=== PATIENT | male | born 1955 | race African-American/Black ===

== ENCOUNTER 2021-07-25 08:20 | Emergency (ER) | payer MEDICARE ==
[2021-07-25 08:26] VITALS: RESP 18; TEMP 98.5
[2021-07-25] MEDS ORDERED: hydrALAZINE HCL 20 MG/ML 1 ML VIAL IVP STA (08:57)
[2021-07-25 09:32] LABS: Basophils % (A) 1 %; Eosinophils # (A) 0.3 k/uL (0-0.7); Eosinophils % (A) 4 %; HCT 49.9 % (39.0-53.0); HGB 16.5 gm/dL (13.0-17.5); Lymphocytes # (A) 2.2 k/uL (1.0-4.8); Lymphocytes % (A) 31 %; MCH 30.6 pg (25.0-35.0); MCHC 33.1 g/dL (31.0-37.0); MCV 92.3 fL (80.0-100.0); Mean Platelet Volume 6.7; Monocytes # (A) 0.4 k/uL (0-1.0); Monocytes % (A) 6 %; Neutrophils # (A) 4.1 k/uL (1.3-7.7); Neutrophils % (A) 57 %; Platelet Count 282 k/uL (150-450); RBC 5.41 m/uL (4.30-5.90); RDW 14.7 % (11.5-15.5); WBC 7.3 k/uL (3.8-10.6)
[2021-07-25] MEDS ORDERED: hydrALAZINE HCL 50 MG TAB PO STA (09:32)
[2021-07-25 09:59] LABS: Potassium 4.8 mmol/L (3.5-5.1)
--- NOTE | 2021-07-25 10:40 | CT ---
EXAMINATION TYPE: CT brain wo con DATE OF EXAM: 07/25/2021 COMPARISON: None HISTORY: 66-year-old male KILLIAN, hypertension TECHNIQUE: Examination was done in axial plane without intravenous contrast. Coronal and sagittal r econstructions performed. CT DLP: 1079 mGycm Automated exposure control for dose reduction was used. FINDINGS: There is no evidence of acute intracranial hemorrhage, acute ischemic changes, mass, mass-effect, or extra-axial fluid collection. There is no effacement of cerebral sulci or basal subarachnoid cister ns. There is no hydrocephalus. There is no midline shift. Rutherford-white matter distinction is preserv ed. Moderate mucosal thickening anterior ethmoid air cells. Some lobulated mucosal thickening lateral asp ect of the right sphenoid sinus. Mastoid air cells well pneumatized. Orbits and globes are intact. IMPRESSION: No acute intracranial abnormality seen. Moderate chronic ethmoid sinus disease.
--- NOTE | 2021-07-25 10:44 | CT ---
EXAMINATION TYPE: CT angio head neck DATE OF EXAM: 07/25/2021 COMPARISON: CT head same day HISTORY: 66-year-old male KILLIAN, hypertension TECHNIQUE: Contiguous axial scanning of the head and neck performed with IV Contrast, patient injecte d with 65 mL of Isovue 370. Coronal/sagittal MIP reconstructions performed. 3-D reconstructions gener ated on a dedicated workstation. CT DLP: 539.2 mGycm Automated exposure control for dose reduction was used. FINDINGS: NECK: Emphysematous change in the visualized upper lungs. There is very direct takeoff of the left vertebral artery directly from the aortic arch. Both vertebr al arteries are patent throughout the course. The right common and right internal carotid arteries are widely patent by NASCET criteria. The left common and left internal carotid arteries are widely patent by NASCET criteria. Mild to moderate hypertrophy of the bilateral palatine tonsils and lingual tonsils. HEAD: The vertebral and basilar arteries as well as the remainder of the posterior circulation is patent. The internal carotid arteries show mild atherosclerotic calcifications in the siphons but no signific ant narrowing. The remainder of the anterior circulation is patent. No aneurysmal change. Dural venous sinuses are patent. IMPRESSION: 1. 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 OTHERWIS E, WIDELY PATENT VERTEBRAL AND CAROTID ARTERIES OF THE NECK. 2. HEAD: NORMAL HYDABURG OF LOVE.
--- NOTE | 2021-07-25 12:16 | ED ---
General Adult HPI - General Chief complaint: Headache Stated complaint: Headache/sinus issues Time Seen by Provider: 07/25/21 08:33 Source: patient, RN notes reviewed, old records reviewed Mode of arrival: ambulatory Limitations: no limitations - History of Present Illness Initial comments: Patient is a 66 year old male who presents emergency Department complaining of uncontrolled hypertension as well as a headache and sinus congestion. She states as been ongoing for one or 2 days. States it is worse today, and wanted to be evaluated. He is out of his blood pressure medication. Is uncertain the name of it. Describes his headache as a frontal headache that is one of the worst headaches he has had. Denies any chest pain, shortness breath, abdominal pain, nausea, vomiting. Denies any weakness, numbness. Denies any visual changes. Presents over concern for his high blood pressure. Was found to be over 200 systolic in triage.Denies any history of aneurysms in himself or family members. Denies any trauma.Endorses nasal congestion. Denies cough. - Related Data Home Medications Medication Instructions Recorded Confirmed hydrALAZINE HCL [Apresoline] 50 mg PO BID 07/25/21 07/25/21 Previous Rx's Medication Instructions Recorded hydrALAZINE HCL 50 mg PO BID 30 Days #60 tablet 07/25/21 Allergies Allergy/AdvReac Type Severity Reaction Status Date / Time amlodipine Allergy Rash/Hives Verified 07/25/21 09:13 lisinopril Allergy "put Verified 07/25/21 09:04 patient in coma" Review of Systems ROS Statement: Those systems with pertinent positive or pertinent negative responses have been documented in the HPI. Review of Systems: CONST: Denies fever EYES: Denies blurry vision ENT: Endorses nasal congestion C/V: Denies Chest pain RESP: Denies shortness of breath GI: Denies abdominal pain : Denies dysuria SKIN: Denies rash. MSK: Denies joint pain. NEURO: Endorses headache ROS Other: All systems not noted in ROS Statement are negative. Past Medical History Past Medical History: Hypertension History of Any Multi-Drug Resistant Organisms: None Reported Past Surgical History: No Surgical Hx Reported Past Psychological History: No Psychological Hx Reported Smoking Status: Never smoker Past Alcohol Use History: None Reported Past Drug Use History: None Reported General Exam - General Exam Comments Initial Comments: General: Appears in no acute distress. HEAD: Normal with no signs of head trauma. EYES: PERRLA, EOMI, conjunctiva normal, no discharge. Pupils 3 mm and equal bilaterally. ENT: Hearing grossly intact, normal oropharynx. Frontal sinus tenderness to palpation. RESPIRATORY: Clear breath sounds bilaterally. No wheezes, rales, or rhonchi. C/V: Regular rate and rhythm. S1 and S2 auscultated, no edema, peripheral pulses 2+ and intact throughout ABD: Abd is soft, nontender, nondistended EXT: Normal range of motion, no obvious deformity SKIN: No rashes or lesions observed on exposed skin. NEURO: Alert and oriented x 4. Cranial nerves II-XII intact. No focal sensory or strength deficits. NIH of 0. GCS 15. Able to ambulate without difficulty. Limitations: no limitations Course Vital Signs 07/25/21 07/25/21 07/25/21 08:23 09:14 09:39 Temperature 98.5 F Pulse Rate 98 67 69 Respiratory 18 18 18 Rate Blood Pressure 222/130 213/132 171/97 O2 Sat by Pulse 97 96 97 Oximetry 07/25/21 07/25/21 10:33 12:46 Temperature Pulse Rate 84 80 Respiratory 18 18 Rate Blood Pressure 165/87 182/88 O2 Sat by Pulse 98 98 Oximetry Medical Decision Making - Medical Decision Making Based on the patient's presentation and physical exam, does appear that he is experiencing uncontrolled hypertension. Remainder of his symptoms may be related to this, however patient is describing 1 the worst headaches of his life. Cannot rule out intracranial bleeding at this time secondary to possible aneurysm. Therefore we will obtain CT imaging with CT angiogram. He was in agreement this plan. Basic labs also be obtained. Screening EKG will be obtained. We'll attempt to figure out what his home blood pressure medications. He'll be given 10 mg IV hydralazine the meantime. EKG showed no signs of acute ischemia. Brain CT revealed sinus disease, however no acute intracranial abnormality. CT angiography revealed no aneurysms, no stenosis. Laboratory studies are relatively unremarkable. I did update the patient's lab results of his laboratory studies and imaging. He is requesting COVID-19 swab this time, therefore this will be obtained. We did find that the patient takes hydralazine 50 g twice a day he was admitted to the pelvis. Repeat blood pressure is significantly improved with systolics in the 160s and 170s. Patient's headache is resolved. He still having sinus drainage. We discussed the likely has a viral sinusitis. Excess understanding. Patient's viral swabs were negative for flu, RSV, Covid. After the patient's on results. I believe it is safer to be discharged home. Blood pressure remained stable. He is asymptomatic at this time. We'll provide him with a prescription for his home hydralazine. Patient was in agreement this plan. I will provide the patient with a prescription for hydralazine 50 mg twice a day. I instructed the patient to follow up with their PCP in the next 3 days. I explained that the patient should return to the emergency department if they experience any worsening symptoms. Strict return precautions were discussed with the patient. The patient expressed understanding of these instructions. I answered all questions that the patient had. The patient was discharged home in good condition with their prescriptions and follow up information. - Lab Data Result diagrams: 07/25/21 09:14 07/25/21 09:14 Lab Results 07/25/21 07/25/21 07/25/21 Range/Units 09:14 09:14 10:38 WBC 7.3 (3.8-10.6) k/uL RBC 5.41 (4.30-5.90) m/uL Hgb 16.5 (13.0-17.5) gm/dL Hct 49.9 (39.0-53.0) % MCV 92.3 (80.0-100.0) fL MCH 30.6 (25.0-35.0) pg MCHC 33.1 (31.0-37.0) g/dL RDW 14.7 (11.5-15.5) % Plt Count 282 (150-450) k/uL MPV 6.7 Neutrophils % 57 % Lymphocytes % 31 % Monocytes % 6 % Eosinophils % 4 % Basophils % 1 % Neutrophils # 4.1 (1.3-7.7) k/uL Lymphocytes # 2.2 (1.0-4.8) k/uL Monocytes # 0.4 (0-1.0) k/uL Eosinophils # 0.3 (0-0.7) k/uL Basophils # 0.0 (0-0.2) k/uL Sodium 137 (137-145) mmol/L Potassium 4.8 (3.5-5.1) mmol/L Chloride 104 (98-107) mmol/L Carbon Dioxide 19 L (22-30) mmol/L Anion Gap 14 mmol/L BUN 13 (9-20) mg/dL Creatinine 1.16 (0.66-1.25) mg/dL Est GFR (CKD-EPI)AfAm 76 (>60 ml/min/1.73 sqM) Est GFR (CKD-EPI)NonAf 66 (>60 ml/min/1.73 sqM) Glucose 149 H (74-99) mg/dL Calcium 9.0 (8.4-10.2) mg/dL Influenza Type A (PCR) Not Detected (Not Detectd) Influenza Type B (PCR) Not Detected (Not Detectd) RSV (PCR) Not Detected (Not Detectd) SARS-CoV-2 (PCR) Not Detected (Not Detectd) - EKG Data -: EKG Interpreted by Me EKG Comments: 12-lead Electrocardiogram Interpretation Note EKG was reviewed and interpreted by myself. 12-lead ECG performed at 0924 is int erpreted by me as revealing normal sinus rhythm at a rate of 80 beats per minute. Trimble is normal. AR interval is 152 ms, QRS duration is 93 ms, QTc is 408 ms.. There were no ST or T wave abnormalities to suggest myocardial ischemia or injury. R wave progression across the precordium was satisfactory. By my interpretation this EKG is non-diagnostic for acute ischemia. No prior EKG for comparison. There is J-point elevation in lead V2 only. Disposition Clinical Impression: Sinusitis, Hypertension, Headache Disposition: HOME SELF-CARE Condition: Good Instructions (If sedation given, give patient instructions): Sinusitis (ED), Hypertension (ED) Prescriptions: hydrALAZINE HCL 50 mg PO BID 30 Days #60 tablet Is patient prescribed a controlled substance at d/c from ED?: No Referrals: Blaire Ellington MD [Primary Care Provider] - 1-2 days
[2021-07-25 12:47] VITALS: BP 182/88; PULSE 80
== END 2021-07-25 12:47 | disposition home or self-care (01) ==
LOC: EC 08:20
DX: J01.10 Acute frontal sinusitis, unspecified (principal); I10 Essential (primary) hypertension; Z20.822 Contact with and (suspected) exposure to COVID-19
CPT/HCPCS: 36415; 70450; 70496; 70498; 80048; 85025; 87636; 93005; 96374; 99284

== ENCOUNTER 2021-09-25 11:41 | Emergency (ER) | payer MEDICARE ==
[2021-09-25 11:44] VITALS: TEMP 98.3
--- NOTE | 2021-09-25 13:00 | XR ---
EXAMINATION TYPE: XR foot complete LT DATE OF EXAM: 09/25/2021 CLINICAL HISTORY: pain TECHNIQUE: AP and lateral images of the left tibia and fibula are obtained. COMPARISON: None. FINDINGS: There is no acute fracture/dislocation evident. There is moderate degenerative joint space narrowing involving the first metatarsal phalangeal joint with erosive arthropathy noted particularl y involving the first metatarsal head. There is associated soft tissue swelling. Remaining joint spac es appear to be well maintained. IMPRESSION: Correlate for erosive arthropathy.
[2021-09-25 13:03] LABS: Albumin 4.5 g/dL (3.5-5.0); Calcium 9.4 mg/dL (8.4-10.2); Potassium 4.3 mmol/L (3.5-5.1); Total Bilirubin 1.1 mg/dL (0.2-1.3); Total Protein 8.4 g/dL (6.3-8.2)
[2021-09-25] MEDS ORDERED: MORPHINE SULFATE 4 MG/ML SYRINGE IVP PRN (13:03)
[2021-09-25 13:25] LABS: Basophils # (A) 0.1 k/uL (0-0.2); Basophils % (A) 0 %; Eosinophils # (A) 0.1 k/uL (0-0.7); Eosinophils % (A) 1 %; HCT 44.7 % (39.0-53.0); HGB 14.8 gm/dL (13.0-17.5); Lymphocytes # (A) 2.1 k/uL (1.0-4.8); Lymphocytes % (A) 18 %; Mean Platelet Volume 7.1; Monocytes # (A) 0.7 k/uL (0-1.0); Monocytes % (A) 6 %; Neutrophils # (A) 8.6 k/uL (1.3-7.7); Neutrophils % (A) 74 %; Platelet Count 423 k/uL (150-450); RBC 4.91 m/uL (4.30-5.90); RDW 14.7 % (11.5-15.5); WBC 11.6 k/uL (3.8-10.6)
--- NOTE | 2021-09-25 13:46 | ED ---
Extremity Problem HPI - General Chief complaint: Extremity Problem,Nontraumatic Stated complaint: gout Time Seen by Provider: 09/25/21 11:53 Source: patient Mode of arrival: ambulatory Limitations: no limitations - History of Present Illness Initial comments: Patient is a 66-year-old -[place] male who presents to the emergency room with complaints of severe left foot pain. He reports that he has had gouty flares of his left foot in the past. He states that the pain began approximately 1 week ago and has gotten more severe to the point where he is unable to tolerate it at home. He reports that approximately 3 weeks ago he had swelling and pain in his foot and with rest the pain improved. He states that just prior to the swelling and pain in his foot he does have a large dietary intake of seafood. He has a past medical history significant for hypertension and gout. He denies any renal failure or diabetic history. He denies any other complaints or concerns at this time. - Related Data Home Medications Medication Instructions Recorded Confirmed hydrALAZINE HCL [Apresoline] 50 mg PO BID 07/25/21 07/25/21 Previous Rx's Medication Instructions Recorded hydrALAZINE HCL 50 mg PO BID 30 Days #60 tablet 07/25/21 Allergies Allergy/AdvReac Type Severity Reaction Status Date / Time amlodipine Allergy Rash/Hives Verified 09/25/21 11:44 lisinopril Allergy "put Verified 09/25/21 11:44 patient in coma" Review of Systems ROS Statement: Those systems with pertinent positive or pertinent negative responses have been documented in the HPI. ROS Other: All systems not noted in ROS Statement are negative. Past Medical History Past Medical History: Hypertension History of Any Multi-Drug Resistant Organisms: None Reported Past Surgical History: No Surgical Hx Reported Past Psychological History: No Psychological Hx Reported Smoking Status: Never smoker Past Alcohol Use History: None Reported Past Drug Use History: None Reported General Exam Limitations: no limitations General appearance: alert, in no apparent distress Head exam: Present: atraumatic, normocephalic, normal inspection Eye exam: Present: normal appearance, PERRL, EOMI. Absent: scleral icterus, conjunctival injection, periorbital swelling ENT exam: Present: normal exam, mucous membranes moist Left Ankle exam: Present: tenderness, swelling, erythema. Absent: full ROM (limited due to pain) Foot/Toe exam: Present: tenderness, swelling, erythema. Absent: full ROM (limited due to pain) Neurovascular tendon exam: Present: no vascular compromise Gait: observed and limited by pain Neurological exam: Present: alert, oriented X3, CN II-XII intact Psychiatric exam: Present: normal affect, normal mood Skin exam: Present: warm, dry, intact. Absent: rash Course Vital Signs 09/25/21 11:41 Temperature 98.3 F Pulse Rate 122 H Respiratory 20 Rate Blood Pressure 164/93 O2 Sat by Pulse 99 Oximetry Medical Decision Making - Medical Decision Making Due to diffuse left foot swelling and recent gouty event labs along with x-ray of left foot completed. X-ray showed no acute fracture or dislocation. There is moderate degenerative joint space narrowing involving the first metatarsophalangeal joint with erosive arthropathy noted particularly involving the first metatarsal head there is associated soft tissue swelling. The remaining joint spaces appear to be well-maintained. Renal function is stable. Uric acid is normal. Mild leukocytosis noted. Case discussed with Dr. Fulton orthopedics who recommends treating for gouty arthritis with follow-up in his office in 2 days. Patient agreeable. Pain improved with IM morphine. - Lab Data Result diagrams: 09/25/21 13:06 09/25/21 12:11 Lab Results 09/25/21 09/25/21 Range/Units 12:11 13:06 WBC 11.6 H (3.8-10.6) k/uL RBC 4.91 (4.30-5.90) m/uL Hgb 14.8 (13.0-17.5) gm/dL Hct 44.7 (39.0-53.0) % MCV 91.0 (80.0-100.0) fL MCH 30.0 (25.0-35.0) pg MCHC 33.0 (31.0-37.0) g/dL RDW 14.7 (11.5-15.5) % Plt Count 423 (150-450) k/uL MPV 7.1 Neutrophils % 74 % Lymphocytes % 18 % Monocytes % 6 % Eosinophils % 1 % Basophils % 0 % Neutrophils # 8.6 H (1.3-7.7) k/uL Lymphocytes # 2.1 (1.0-4.8) k/uL Monocytes # 0.7 (0-1.0) k/uL Eosinophils # 0.1 (0-0.7) k/uL Basophils # 0.1 (0-0.2) k/uL Sodium 139 (137-145) mmol/L Potassium 4.3 (3.5-5.1) mmol/L Chloride 100 (98-107) mmol/L Carbon Dioxide 28 (22-30) mmol/L Anion Gap 11 mmol/L BUN 12 (9-20) mg/dL Creatinine 1.28 H (0.66-1.25) mg/dL Est GFR (CKD-EPI)AfAm 67 (>60 ml/min/1.73 sqM) Est GFR (CKD-EPI)NonAf 58 (>60 ml/min/1.73 sqM) Glucose 141 H (74-99) mg/dL Uric Acid 8.0 (3.5-8.5) mg/dL Calcium 9.4 (8.4-10.2) mg/dL Total Bilirubin 1.1 (0.2-1.3) mg/dL AST 24 (17-59) U/L ALT 22 (4-49) U/L Alkaline Phosphatase 68 (38-126) U/L Total Protein 8.4 H (6.3-8.2) g/dL Albumin 4.5 (3.5-5.0) g/dL - Radiology Data Radiology results: report reviewed, image reviewed Disposition Clinical Impression: Gout Disposition: HOME SELF-CARE Condition: Good Instructions (If sedation given, give patient instructions): Gout (ED) Additional Instructions: Call crests prescription started with 1.2 mg given in the emergency room and 0.6 mg given to patient to take an 1 hour to complete acute dosing. Tylenol 3 starter packet given to patient for pain. Low purine diet discussed. Please return to the Emergency Department if symptoms worsen or any other concerns. Is patient prescribed a controlled substance at d/c from ED?: No Referrals: Reese Fulton DO [Doctor of Osteopathic Medicine] - 1-2 days Blaire Ellington MD [Primary Care Provider] - 1-2 days Time of Disposition: 16:32
[2021-09-25] MEDS ORDERED: ACET/COD 300 MG/30 MG STARTER PACK 6 TAB BTL PO STA (13:53)
[2021-09-25] MEDS ORDERED: COLCHICINE 0.6 MG EACH PO SCH ×2 (16:30→18:00)
[2021-09-25 16:41] VITALS: BP 149/101; PULSE 101; RESP 14
[2021-09-25] MEDS ORDERED: COLCHICINE 0.6 MG EACH PO ONE (16:45)
[2021-09-26] MEDS ORDERED: COLCHICINE 0.6 MG EACH PO SCH (09:00)
== END 2021-09-25 17:11 | disposition home or self-care (01) ==
LOC: EC 11:41
DX: M10.9 Gout, unspecified (principal); I10 Essential (primary) hypertension; Z79.899 Other long term (current) drug therapy
CPT/HCPCS: 36415; 80053; 84550; 85025; 96374; 99283

== ENCOUNTER 2022-10-22 09:04 | Emergency (ER) | payer MEDICARE, OTHER ==
[2022-10-22 09:31] VITALS: RESP 18
--- NOTE | 2022-10-22 10:27 | XR ---
EXAMINATION TYPE: XR chest 2V DATE OF EXAM: 10/22/2022 COMPARISON: NONE HISTORY: Shortness of breath TECHNIQUE: Frontal and lateral views of the chest are obtained. FINDINGS: Scattered senescent parenchymal changes noted. Hyperinflation compatible with COPD. Perihilar and basilar increased interstitial prominence may be chronic in nature although acute under lying interstitial pneumonitis is difficult to exclude. Correlate clinically and progress studies may be of value. No evidence for atelectasis. Heart size is stable. Mediastinal structures are stable and grossly unremarkable. No evidence for hilar prominence. Degenerative changes dorsal spine. IMPRESSION: 1. Perihilar and basilar increased interstitial prominence may be chronic in nature although acute un derlying interstitial pneumonitis is difficult to exclude. Correlate clinically and progress studies may be of value.
--- NOTE | 2022-10-22 10:31 | ED ---
URI HPI - General Chief Complaint: Upper Respiratory Infection Stated Complaint: cough Time Seen by Provider: 10/22/22 09:18 Source: patient, RN notes reviewed Mode of arrival: ambulatory Limitations: no limitations - History of Present Illness Initial Comments: 67-year-old male presents emergency Department chief complaint of cough congestion. Patient states that he has been sick for last 4 days he states she's been hearing some wheezing, rattling in his chest. He has productive cough, mild sinus congestion.. Patient denies any history of asthma, COPD. Patient denies any fevers or chills no sick contacts. Denies any GI symptoms. - Related Data Home Medications Medication Instructions Recorded Confirmed hydrALAZINE HCL [Apresoline] 50 mg PO BID 07/25/21 07/25/21 Previous Rx's Medication Instructions Recorded hydrALAZINE HCL 50 mg PO BID 30 Days #60 tablet 07/25/21 Azithromycin [Zithromax Z Pack] 0 tab PO DIRECTED #6 tab 10/22/22 predniSONE 50 mg PO DAILY #5 tab 10/22/22 Allergies Allergy/AdvReac Type Severity Reaction Status Date / Time amlodipine Allergy Rash/Hives Verified 10/22/22 09:12 lisinopril Allergy "put Verified 10/22/22 09:12 patient in coma" Review of Systems ROS Statement: Those systems with pertinent positive or pertinent negative responses have been documented in the HPI. ROS Other: All systems not noted in ROS Statement are negative. Past Medical History Past Medical History: Hypertension History of Any Multi-Drug Resistant Organisms: None Reported Past Surgical History: No Surgical Hx Reported Past Psychological History: No Psychological Hx Reported Smoking Status: Never smoker Past Alcohol Use History: None Reported Past Drug Use History: None Reported General Exam Limitations: no limitations General appearance: alert, in no apparent distress Head exam: Present: atraumatic, normocephalic, normal inspection Eye exam: Present: normal appearance, PERRL, EOMI. Absent: scleral icterus, conjunctival injection, periorbital swelling ENT exam: Present: normal exam, normal oropharynx, mucous membranes moist Neck exam: Present: normal inspection, full ROM. Absent: tenderness, meningismus, lymphadenopathy Respiratory exam: Present: normal lung sounds bilaterally. Absent: respiratory distress, wheezes, rales, rhonchi, stridor Cardiovascular Exam: Present: regular rate, normal rhythm, normal heart sounds. Absent: systolic murmur, diastolic murmur, rubs, gallop, clicks GI/Abdominal exam: Present: soft, normal bowel sounds. Absent: distended, tenderness, guarding, rebound, rigid Neurological exam: Present: alert Skin exam: Present: warm, dry, intact, normal color. Absent: rash Course Vital Signs 10/22/22 10/22/22 09:13 09:27 Temperature 98.8 F Pulse Rate 78 Respiratory 16 18 Rate Blood Pressure 198/97 O2 Sat by Pulse 94 L Oximetry Medical Decision Making - Medical Decision Making Was pt. sent in by a medical professional or institution (, [facility], STAFF PSYCHIATRIST, urgent care, hospital, or detention...) When possible be specific @ -No Did you speak to anyone other than the patient for history (EMS, parent, family, police, friend...)? What history was obtained from this source @ -No Did you review nursing and triage notes (agree or disagree)? Why? @ -I reviewed and agree with nursing and triage notes Were old charts reviewed (outside hosp., previous admission, EMS record, old EKG, old radiological studies, urgent care reports/EKG's, detention records)? Report findings @ -No old charts were reviewed Differential Diagnosis (chest pain, altered mental status, abdominal pain women, abdominal pain men, vaginal bleeding, weakness, fever, dyspnea, syncope, headache, dizziness, GI bleed, back pain, seizure, CVA, palpatations, mental health, musculoskeletal)? @ -Pneumonia, acute bronchitis, URI EKG interpreted by me (3pts min.). @ -None X-rays interpreted by me (1pt min.). @ -Chest x-ray shows perihilar infiltrate CT interpreted by me (1pt min.). @ -None done U/S interpreted by me (1pt. min.). @ -None done What testing was considered but not performed or refused? (CT, X-rays, U/S, labs)? Why? @ -None What meds were considered but not given or refused? Why? @ -None Did you discuss the management of the patient with other professionals (professionals i.e. BRODY Jc, STAFF PSYCHIATRIST, lab, RT, psych nurse, social media community manager, peoplesoft hrms developer, teacher, service officer, case management coordinator)? Give summary @ -No Was smoking cessation discussed for >3mins.? @ -No Was critical care preformed (if so, how long)? @ -No Were there social determinants of health that impacted care today? How? (Homelessness, low income, unemployed, alcoholism, drug addiction, transportation, low edu. Level, literacy, decrease access to med. care, longterm, rehab)? @ -No Was there de-escalation of care discussed even if they declined (Discuss DNR or withdrawal of care, Hospice)? DNR status @ -No What co-morbidities impacted this encounter? (DM, HTN, Smoking, COPD, CAD, Cancer, CVA, ARF, Chemo, Hep., AIDS, mental health diagnosis, sleep apnea, morbid obesity)? @ -None Was patient admitted / discharged? Hospital course, mention meds given and route, prescriptions, significant lab abnormalities, going to OR and other pertinent info. @ -Discharge patient has early signs of pneumonia. Patient will be discharged on oral antibiotics return parameters were discussed. Undiagnosed new problem with uncertain prognosis? @ -No] Drug Therapy requiring intensive monitoring for toxicity (Heparin, Nitro, Insulin, Cardizem)? @ -[No] Were any procedures done? @ -[No] Diagnosis/symptom? @ -[Pneumonia] Acute, or Chronic, or Acute on Chronic? @ -[Acute] Uncomplicated (without systemic symptoms) or Complicated (systemic symptoms)? @ -[Uncomplicated] Side effects of treatment? @ -[No] Exacerbation, Progression, or Severe Exacerbation? @ -[No] Poses a threat to life or bodily function? How? (Chest pain, [place], [place], pneumonia, PE, COPD, DKA, ARF, appy, cholecystitis, CVA, Diverticulitis, Homicidal, Suicidal, threat to staff... and all critical care pts) @ -[No] Disposition Clinical Impression: Pneumonia Disposition: HOME SELF-CARE Condition: Stable Instructions (If sedation given, give patient instructions): Pneumonia (ED) Additional Instructions: Please return to the Emergency Department if symptoms worsen or any other concerns. Prescriptions: predniSONE 50 mg PO DAILY #5 tab Azithromycin [Zithromax Z Pack] 0 tab PO DIRECTED #6 tab Is patient prescribed a controlled substance at d/c from ED?: No Referrals: Blaire Ellington MD [Primary Care Provider] - 1-2 days Time of Disposition: 10:44
[2022-10-22 11:00] VITALS: BP 185/106; PULSE 80; TEMP 98.1
== END 2022-10-22 11:16 | disposition home or self-care (01) ==
LOC: EC 09:04
DX: J18.9 Pneumonia, unspecified organism (principal); I10 Essential (primary) hypertension; Z79.899 Other long term (current) drug therapy; Z88.6 Allergy status to analgesic agent; Z88.8 Allergy status to other drugs, medicaments and biological substances
CPT/HCPCS: 71046; 99283

== ENCOUNTER 2023-03-03 07:17 | Emergency (ER) | payer MEDICARE, OTHER ==
[2023-03-03 07:35] VITALS: BP 178/90; PULSE 68; RESP 22; TEMP 98.7
--- NOTE | 2023-03-03 07:44 | ED ---
General Adult HPI - General Chief complaint: Upper Respiratory Infection Stated complaint: congestion Time Seen by Provider: 03/03/23 07:22 Source: patient, RN notes reviewed, old records reviewed Mode of arrival: ambulatory Limitations: no limitations - History of Present Illness Initial comments: 67-year-old male presenting for evaluation of cough, congestion. Patient states his symptoms 7 present for the past 2 days. He reports nasal congestion, sore throat, and productive cough. No fever. No chest pain. No dyspnea. No vomiting. Patient denies tobacco use, denies history of asthma. States he has history of hypertension. - Related Data Home Medications Medication Instructions Recorded Confirmed hydrALAZINE HCL [Apresoline] 50 mg PO BID 07/25/21 07/25/21 Previous Rx's Medication Instructions Recorded hydrALAZINE HCL 50 mg PO BID 30 Days #60 tablet 07/25/21 Azithromycin [Zithromax Z Pack] 0 tab PO DIRECTED #6 tab 10/22/22 predniSONE 50 mg PO DAILY #5 tab 10/22/22 Albuterol Inhaler [Ventolin Hfa 1 - 2 puff INHALATION Q4HR PRN #1 03/03/23 Inhaler] each Azithromycin [Zithromax Z Pack] 1 tab PO DIRECTED #6 tab 03/03/23 predniSONE 50 mg PO DAILY #5 tab 03/03/23 Allergies Allergy/AdvReac Type Severity Reaction Status Date / Time amlodipine Allergy Rash/Hives Verified 03/03/23 07:25 lisinopril Allergy "put Verified 03/03/23 07:25 patient in coma" Review of Systems ROS Statement: Those systems with pertinent positive or pertinent negative responses have been documented in the HPI. ROS Other: All systems not noted in ROS Statement are negative. Past Medical History Past Medical History: Hypertension History of Any Multi-Drug Resistant Organisms: None Reported Past Surgical History: No Surgical Hx Reported Past Psychological History: No Psychological Hx Reported Smoking Status: Never smoker Past Alcohol Use History: None Reported Past Drug Use History: Marijuana General Exam Limitations: no limitations General appearance: alert, in no apparent distress Head exam: Present: atraumatic, normocephalic Eye exam: Present: normal appearance, PERRL ENT exam: Present: other (Nasal congestion) Respiratory exam: Present: wheezes, rhonchi. Absent: respiratory distress Cardiovascular Exam: Present: regular rate, normal rhythm GI/Abdominal exam: Present: soft. Absent: distended, tenderness, guarding Extremities exam: Present: normal inspection Neurological exam: Present: alert, oriented X3 Psychiatric exam: Present: normal affect, normal mood Skin exam: Present: warm, dry, intact. Absent: cyanosis, diaphoretic Course Vital Signs 03/03/23 07:23 Temperature 98.7 F Pulse Rate 68 Respiratory 22 Rate Blood Pressure 178/90 O2 Sat by Pulse 98 Oximetry Medical Decision Making - Medical Decision Making Was pt. sent in by a medical professional or institution (, BR[facility], CULTURED MARBLE PRODUCTS MAKER, urgent care, hospital, or correction...) When possible be specific @ -No Did you speak to anyone other than the patient for history (EMS, parent, family, police, friend...)? What history was obtained from this source @ -No Did you review nursing and triage notes (agree or disagree)? Why? @ -I reviewed and agree with nursing and triage notes Were old charts reviewed (outside hosp., previous admission, EMS record, old EKG, old radiological studies, urgent care reports/EKG's, correction records)? Report findings @ -No old charts were reviewed Differential Diagnosis (chest pain, altered mental status, abdominal pain women, abdominal pain men, vaginal bleeding, weakness, fever, dyspnea, syncope, headache, dizziness, GI bleed, back pain, seizure, CVA, palpatations, mental health, musculoskeletal)? @ Bronchitis, pneumonia, reactive airway disease, upper respiratory infection EKG interpreted by me (3pts min.). @ -As above X-rays interpreted by me (1pt min.). @ Chest x-ray showing interstitial prominence, possible fibrosis, similar comp ared to several months prior. CT interpreted by me (1pt min.). @ -None done U/S interpreted by me (1pt. min.). @ -None done What testing was considered but not performed or refused? (CT, X-rays, U/S, labs)? Why? @ -None What meds were considered but not given or refused? Why? @ -None Did you discuss the management of the patient with other professionals (professionals i.e. BRODY Jc, CULTURED [employer]BLE PRODU[employer] MAKER, lab, RT, psych nurse, social services assistant, fire inspector, teacher, weapons electrical engineering officer, medical case worker)? Give summary @ -No Was smoking cessation discussed for >3mins.? @ -No Was critical care preformed (if so, how long)? @ -No Were there social determinants of health that impacted care today? How? (Homelessness, low income, unemployed, alcoholism, drug addiction, transportation, low edu. Level, literacy, decrease access to med. care, fdc, rehab)? @ -No Was there de-escalation of care discussed even if they declined (Discuss DNR or withdrawal of care, Hospice)? DNR status @ -No What co-morbidities impacted this encounter? (DM, HTN, Smoking, COPD, CAD, Cancer, CVA, ARF, Chemo, Hep., AIDS, mental health diagnosis, sleep apnea, morbid obesity)? @ -[Hypertension. Was patient admitted / discharged? Hospital course, mention meds given and route, prescriptions, significant lab abnormalities, going to OR and other pertinent info. @ -[Patient's viral panel is negative. Chest x-ray similar to prior showing either fibrosis or interstitial prominence. Patient will be covered for pneumonia with likely fibrosis and COPD patient should follow closely with his primary care provider and may require pulmonology consult. Undiagnosed new problem with uncertain prognosis? @ -No Drug Therapy requiring intensive monitoring for toxicity (Heparin, Nitro, Insulin, Cardizem)? @ -No Were any procedures done? @ -No Diagnosis/symptom? @ Reactive airway disease, pneumonia Acute, or Chronic, or Acute on Chronic? @ -[Acute Uncomplicated (without systemic symptoms) or Complicated (systemic symptoms)? @ -default Side effects of treatment? @ -No Exacerbation, Progression, or Severe Exacerbation? @ -No Poses a threat to life or bodily function? How? (Chest pain, [place], [place], pneumonia, PE, COPD, DKA, ARF, appy, cholecystitis, CVA, Diverticulitis, Homicidal, Suicidal, threat to staff... and all critical care pts) @ -[Low risk Disposition Clinical Impression: Pneumonia, Bronchitis Disposition: HOME SELF-CARE Condition: Good Instructions (If sedation given, give patient instructions): Pneumonia (ED) Prescriptions: predniSONE 50 mg PO DAILY #5 tab Albuterol Inhaler [Ventolin Hfa Inhaler] 1 - 2 puff INHALATION Q4HR PRN #1 each PRN Reason: Shortness Of Breath Azithromycin [Zithromax Z Pack] 1 tab PO DIRECTED #6 tab Is patient prescribed a controlled substance at d/c from ED?: No Referrals: Vargas Cohen MD [Primary Care Provider] - 1-2 days Time of Disposition: 08:28
--- NOTE | 2023-03-03 08:21 | XR ---
EXAMINATION TYPE: XR chest 2V DATE OF EXAM: 03/03/2023 8:00 AM COMPARISON: Chest radiographs from 10/22/2022 TECHNIQUE: XR chest 2V Frontal and lateral views of the chest. CLINICAL INDICATION:Male, 67 years old with history of cough; FINDINGS: Lungs/Pleura: There is no evidence of pleural effusion, focal consolidation, or pneumothorax. Chronic perihilar and bibasilar interstitial prominence. Hyperinflation. Pulmonary vascularity: Unremarkable. Heart/mediastinum: Cardiomediastinal silhouette is unremarkable. Musculoskeletal: No acute osseous pathology. IMPRESSION: Chronic COPD and pulmonary fibrotic changes without acute pulmonary process. No significant change fr om prior.
== END 2023-03-03 08:42 | disposition home or self-care (01) ==
LOC: EC 07:17
DX: J18.9 Pneumonia, unspecified organism (principal); J40 Bronchitis, not specified as acute or chronic; I10 Essential (primary) hypertension; F12.90 Cannabis use, unspecified, uncomplicated; Z88.8 Allergy status to other drugs, medicaments and biological substances; Z79.899 Other long term (current) drug therapy; Z20.822 Contact with and (suspected) exposure to COVID-19
CPT/HCPCS: 71046; 87636; 99283

== ENCOUNTER 2023-09-28 08:38 | Emergency (ER) | payer MEDICARE, OTHER ==
[2023-09-28 08:44] VITALS: RESP 18
--- NOTE | 2023-09-28 09:34 | XR ---
EXAMINATION TYPE: XR finger RT DATE OF EXAM: 09/28/2023 CLINICAL HISTORY: pain TECHNIQUE: 3 views of the first digit are submitted. COMPARISON: None FINDINGS: No displaced fracture is seen with certainty. Joint spaces are well-preserved. Correlate for soft tissue injury. IMPRESSION: No acute displaced fracture or dislocation.
--- NOTE | 2023-09-28 09:38 | ED ---
Upper Extremity HPI - General Chief Complaint: Extremity Injury, Upper Stated Complaint: R Hand Numbness Time Seen by Provider: 09/28/23 08:46 Source: patient, RN notes reviewed Mode of arrival: ambulatory Limitations: no limitations - History of Present Illness Initial Comments: 68-year-old male presents emergency department chief complaint of right thumb pain. Patient states that swollen painful to move. Patient states he had no trauma is right-hand dominant states it hurts to lift running up denies any other hand pain, arm pain no chest pain no shortness of breath no fever. - Related Data Home Medications Medication Instructions Recorded Confirmed hydrALAZINE HCL [Apresoline] 50 mg PO BID 07/25/21 07/25/21 Previous Rx's Medication Instructions Recorded hydrALAZINE HCL 50 mg PO BID 30 Days #60 tablet 07/25/21 Azithromycin [Zithromax Z Pack] 0 tab PO DIRECTED #6 tab 10/22/22 predniSONE 50 mg PO DAILY #5 tab 10/22/22 Albuterol Inhaler [Ventolin Hfa 1 - 2 puff INHALATION Q4HR PRN #1 03/03/23 Inhaler] each Azithromycin [Zithromax Z Pack] 1 tab PO DIRECTED #6 tab 03/03/23 predniSONE 50 mg PO DAILY #5 tab 03/03/23 predniSONE 50 mg PO DAILY #5 tab 09/28/23 Allergies Allergy/AdvReac Type Severity Reaction Status Date / Time amlodipine Allergy Rash/Hives Verified 09/28/23 08:44 lisinopril Allergy "put Verified 09/28/23 08:44 patient in coma" Review of Systems ROS Statement: Those systems with pertinent positive or pertinent negative responses have been documented in the HPI. ROS Other: All systems not noted in ROS Statement are negative. Past Medical History Past Medical History: Hypertension History of Any Multi-Drug Resistant Organisms: None Reported Past Surgical History: No Surgical Hx Reported Past Psychological History: No Psychological Hx Reported Smoking Status: Never smoker Past Alcohol Use History: None Reported Past Drug Use History: Marijuana General Exam Limitations: no limitations General appearance: alert, in no apparent distress Head exam: Present: atraumatic, normocephalic, normal inspection Neck exam: Present: normal inspection, full ROM. Absent: tenderness, meningismus, lymphadenopathy Respiratory exam: Present: normal lung sounds bilaterally. Absent: respiratory distress, wheezes, rales, rhonchi, stridor Cardiovascular Exam: Present: regular rate, normal rhythm, normal heart sounds. Absent: systolic murmur, diastolic murmur, rubs, gallop, clicks Extremities exam: Present: other (Right thumb there is pain, swelling noted there is no erythema there is tenderness along the MCP region neurovascular intact equal radial pulses no arm pain tenderness or swelling noted) Course Vital Signs 09/28/23 08:39 Temperature 98.5 F Pulse Rate 88 Respiratory 18 Rate Blood Pressure 192/100 O2 Sat by Pulse 97 Oximetry Medical Decision Making - Medical Decision Making Was pt. sent in by a medical professional or institution (, [facility], TELEPHONE ANSWERER, urgent care, hospital, or prison...) When possible be specific @ -No Did you speak to anyone other than the patient for history (EMS, parent, family, police, friend...)? What history was obtained from this source @ -No Did you review nursing and triage notes (agree or disagree)? Why? @ -I reviewed and agree with nursing and triage notes Were old charts reviewed (outside hosp., previous admission, EMS record, old EKG, old radiological studies, urgent care reports/EKG's, prison records)? Report findings @ -No old charts were reviewed Differential Diagnosis (chest pain, altered mental status, abdominal pain women, abdominal pain men, vaginal bleeding, weakness, fever, dyspnea, syncope, headache, dizziness, GI bleed, back pain, seizure, CVA, palpatations, mental health, musculoskeletal)? @ -Thumb fracture, tendinitis, gout EKG interpreted by me (3pts min.). @ -None X-rays interpreted by me (1pt min.). @ -X-ray right thumb shows no acute fracture or osseous abnormality CT interpreted by me (1pt min.). @ -None done U/S interpreted by me (1pt. min.). @ -None done What testing was considered but not performed or refused? (CT, X-rays, U/S, labs)? Why? @ -None What meds were considered but not given or refused? Why? @ -None Did you discuss the management of the patient with other professionals (professionals i.e. BRODY Jc, TELEPHONE ANSWERER, lab, RT, psych nurse, aids social worker, precision honing machine operator, teacher, transportation officer, pillowcase folder)? Give summary @ -No Was smoking cessation discussed for >3mins.? @ -No Was critical care preformed (if so, how long)? @ -No Were there social determinants of health that impacted care today? How? (Homelessness, low income, unemployed, alcoholism, drug addiction, transportation, low edu. Level, literacy, decrease access to med. care, correction, rehab)? @ -No Was there de-escalation of care discussed even if they declined (Discuss DNR or withdrawal of care, Hospice)? DNR status @ -No What co-morbidities impacted this encounter? (DM, HTN, Smoking, COPD, CAD, Cancer, CVA, ARF, Chemo, Hep., AIDS, mental health diagnosis, sleep apnea, morbid obesity)? @ -Gout Was patient admitted / discharged? Hospital course, mention meds given and route, prescriptions, significant lab abnormalities, going to OR and other pertinent info. @ -Discharged patient presented for right thumb pain this is inflammatory process without evidence of acute infection this may related to gout patient started on steroids, analgesics (discussed Undiagnosed new problem with uncertain prognosis? @ -No Drug Therapy requiring intensive monitoring for toxicity (Heparin, Nitro, Insulin, Cardizem)? @ -No Were any procedures done? @ -No Diagnosis/symptom? @ -Right thumb pain Acute, or Chronic, or Acute on Chronic? @ -Acute Uncomplicated (without systemic symptoms) or Complicated (systemic symptoms)? @ -Uncomplicated Side effects of treatment? @ -No Exacerbation, Progression, or Severe Exacerbation? @ -No Poses a threat to life or bodily function? How? (Chest pain, [place], [place], pneumonia, PE, COPD, DKA, ARF, appy, cholecystitis, CVA, Diverticulitis, Homicidal, Suicidal, threat to staff... and all critical care pts) @ -No Disposition Clinical Impression: Thumb tendonitis, Hx of gout Disposition: HOME SELF-CARE Condition: Stable Instructions (If sedation given, give patient instructions): Tendinitis (ED) Additional Instructions: Please return to the Emergency Department if symptoms worsen or any other concerns. Prescriptions: predniSONE 50 mg PO DAILY #5 tab Is patient prescribed a controlled substance at d/c from ED?: No Referrals: None,Stated [Primary Care Provider] - 1-2 days Time of Disposition: 10:03
[2023-09-28] MEDS: HYDROcodone/APAP 5-325MG 1 EACH TAB PO STA (10:08)
[2023-09-28] MEDS: ACET/COD 300 MG/30 MG STARTER PACK 6 TAB BTL PO STA (10:09)
[2023-09-28 10:18] VITALS: BP 186/90; PULSE 76; TEMP 98.1
== END 2023-09-28 10:16 | disposition home or self-care (01) ==
LOC: EC 08:38
DX: M77.8 Other enthesopathies, not elsewhere classified (principal); M10.9 Gout, unspecified; F12.90 Cannabis use, unspecified, uncomplicated; Z88.6 Allergy status to analgesic agent; Z88.8 Allergy status to other drugs, medicaments and biological substances
CPT/HCPCS: 99283

== ENCOUNTER 2023-10-16 17:07 | Emergency (ER) | payer MEDICARE, OTHER ==
[2023-10-16 17:53] VITALS: BP 163/92; PULSE 85; RESP 16; TEMP 98.7
--- NOTE | 2023-10-16 18:48 | ED ---
General Adult HPI - General Chief complaint: Extremity Problem,Nontraumatic Stated complaint: Swelling, Pain in right elbow, right hand Time Seen by Provider: 10/16/23 18:12 Source: patient Mode of arrival: ambulatory Limitations: no limitations - History of Present Illness Initial comments: 60-year-old male presents to the emergency department for evaluation of right hand pain. He also admits to pain in the right elbow and the left knee. No known injury. - Related Data Home Medications Medication Instructions Recorded Confirmed hydrALAZINE HCL [Apresoline] 50 mg PO BID 07/25/21 07/25/21 Previous Rx's Medication Instructions Recorded hydrALAZINE HCL 50 mg PO BID 30 Days #60 tablet 07/25/21 Azithromycin [Zithromax Z Pack] 0 tab PO DIRECTED #6 tab 10/22/22 predniSONE 50 mg PO DAILY #5 tab 10/22/22 Albuterol Inhaler [Ventolin Hfa 1 - 2 puff INHALATION Q4HR PRN #1 03/03/23 Inhaler] each Azithromycin [Zithromax Z Pack] 1 tab PO DIRECTED #6 tab 03/03/23 predniSONE 50 mg PO DAILY #5 tab 03/03/23 predniSONE 50 mg PO DAILY #5 tab 09/28/23 Allergies Allergy/AdvReac Type Severity Reaction Status Date / Time amlodipine Allergy Rash/Hives Verified 10/16/23 17:53 lisinopril Allergy "put Verified 10/16/23 17:53 patient in coma" Review of Systems ROS Statement: Those systems with pertinent positive or pertinent negative responses have been documented in the HPI. ROS Other: All systems not noted in ROS Statement are negative. Past Medical History Past Medical History: Hypertension History of Any Multi-Drug Resistant Organisms: None Reported Past Surgical History: No Surgical Hx Reported Past Psychological History: No Psychological Hx Reported Smoking Status: Never smoker Past Alcohol Use History: None Reported Past Drug Use History: Marijuana General Exam - General Exam Comments Initial Comments: Visual Physical Exam Vital signs reviewed General: Well-appearing, nontoxic, no acute distress. Head: Normocephalic, atraumatic Eyes: PERRLA, EOMI ENT: Airway patent Chest: Nonlabored breathing Skin: No visual rash, normal skin tone Neuro: Alert and oriented 3 Musculoskeletal: No gross abnormalities Limitations: no limitations Course Vital Signs 10/16/23 17:51 Temperature 98.7 F Pulse Rate 85 Respiratory 16 Rate Blood Pressure 163/92 O2 Sat by Pulse 99 Oximetry Medical Decision Making - Medical Decision Making Patient left against medical advice prior to workup Disposition Clinical Impression: Left against medical advice Disposition: LEFT AGAINST MEDICAL ADVICE Is patient prescribed a controlled substance at d/c from ED?: No Referrals: Nonstaff,Physician [REFERRING] - 1-2 days
== END 2023-10-16 19:17 | disposition left against medical advice (07) ==
LOC: SUPCPDRO 17:07 → EC 17:07
DX: M25.521 Pain in right elbow (principal); Z53.29 Procedure and treatment not carried out because of patient's decision for other reasons; Z88.8 Allergy status to other drugs, medicaments and biological substances
CPT/HCPCS: 99282

== ENCOUNTER 2024-09-28 04:42 | Inpatient (IN) | payer MEDICARE, OTHER ==
--- NOTE | 2024-09-28 06:04 | ED ---
General Adult HPI - General Chief complaint: Chest Pain Stated complaint: Chest Pain Time Seen by Provider: 09/28/24 05:55 Source: patient Mode of arrival: ambulatory Limitations: no limitations - History of Present Illness Initial comments: Patient is a 69-year-old gentleman the past medical history of hypertension presenting today for chest pain. Patient states pain woke him up out of sleep at 3 AM. It is pressure-like in nature and rating down his left arm. He said that he felt nauseous, belched and did not improvement in pain. Did not take an y pain medications prior to arrival. Currently rates pain as 7-8 out of 10. Has never had pain like this before. Endorses associated shortness of breath. Denies recent fevers, chills, cough, leg swelling, hemoptysis, recent travel surgeries or hospitalizations, he is a non-smoker, no history of hyperlipidemia or diabetes. No first-degree relatives with history CVA or ME. - Related Data Home Medications Medication Instructions Recorded Confirmed No Known Home Medications 09/28/24 09/28/24 Allergies Allergy/AdvReac Type Severity Reaction Status Date / Time amlodipine Allergy Rash/Hives Verified 09/28/24 07:36 lisinopril Allergy "put Verified 09/28/24 07:36 patient in coma" Review of Systems ROS Statement: Those systems with pertinent positive or pertinent negative responses have been documented in the HPI. ROS Other: All systems not noted in ROS Statement are negative. Past Medical History Past Medical History: Hypertension History of Any Multi-Drug Resistant Organisms: None Reported Past Surgical History: No Surgical Hx Reported Past Psychological History: No Psychological Hx Reported Smoking Status: Never smoker Past Alcohol Use History: None Reported Past Drug Use History: Marijuana General Exam - General Exam Comments Initial Comments: PE: CONSTITUTIONAL: No apparent distress, well appearing SKIN: Warm, dry, no jaundice, hives or petechiae EYES: Pupils are equally round, extraocular movements intact without nystagmus, clear conjunctiva, non-icteric sclera HENT: Normocephalic, atraumatic, moist mucus membranes, oropharynx clear without exudates NECK: , Full range of motion, normal appearance PULMONARY: Clear to auscultation without wheezes, rhonchi, or rales, normal excursion, no accessory muscle use and no stridor CARDIOVASCULAR: Regular rate, rhythm, normal S1 and S2. No appreciated murmurs, rubs or gallops. Strong radial pulses with intact distal perfusion. No lower extremity edema GASTROINTESTINAL: Soft, active bowel sounds throughout, non-tender, non- distended, no palpable masses, no rebound or guarding. No hepatosplenomegaly GENITOURINARY: MUSCULOSKELETAL: Extremities have no gross deformity, no edema, redness, or swelling. No calf swelling NEUROLOGIC:_a/o x 3, GCS 15, normal mentation and speech. Moves all extremities x 4 without motor or sensory deficit PSYCHIATRIC:_normal mood and affect, thought process is clear and linear Limitations: no limitations Course Vital Signs 09/28/24 09/28/24 09/28/24 04:48 06:07 06:22 Temperature 97.6 F Pulse Rate 111 H 105 H 101 H Respiratory 18 16 16 Rate Blood Pressure 145/107 181/105 159/98 O2 Sat by Pulse 97 93 L 90 L Oximetry 09/28/24 07:20 Temperature Pulse Rate Respiratory Rate Blood Pressure 138/97 O2 Sat by Pulse Oximetry EKG Findings - EKG Comments: EKG Findings:: EKG #1, obtained at 4:54 AM, sinus tachycardia with PVCs, rate 107 bpm, intervals within acceptable limits, left axis deviation, no significant ST elevations or depressions, Q waves present V1 through V3. Repeat EKG obtai david at 5:13 AM, sinus tachycardia with occasional PVCs, rate 106 bpm, intervals within acceptable limits, left axis deviation, no new significant ST elevations or depressions from prior. PCP EKG obtained at 7:26 AM, sinus rhythm, no no significant ST elevations or depressions from earlier EKGs Medical Decision Making - Medical Decision Making Was pt. sent in by a medical professional or institution (, PA, MANAGER OUTREACH, urgent care, hospital, or alf...) When possible be specific @ -No Did you speak to anyone other than the patient for history (EMS, parent, family, police, friend...)? What history was obtained from this source @ -No Did you review nursing and triage notes (agree or disagree)? Why? @ -I reviewed and agree with nursing and triage notes Differential Diagnosis (chest pain, altered mental status, abdominal pain women, abdominal pain men, vaginal bleeding, weakness, fever, dyspnea, syncope, headache, dizziness, GI bleed, back pain, seizure, CVA, palpatations, mental health, musculoskeletal)? Differential Chest Pain: Stable Angina, Unstable Angina, STEMI, NSTEMI Aortic Dissection, pericarditis, pleurisy, chostochondirits, Pneumothorax, Musculoskeletal, Esophageal Spasm GERD, Cholecystitis, Pancreatitis, Zoster, this is not meant to be an all- inclusive list. EKG interpreted by me (3pts min.). @ -As above X-rays interpreted by me (1pt min.). @ -On my review appears to show cardiomegaly without pleural effusions of consolidations though interstitial prominence noted, agree with radiologist interpretation CT interpreted by me (1pt min.). @ -None done U/S interpreted by me (1pt. min.). @ -None done What testing was considered but not performed or refused? (CT, X-rays, U/S, labs)? Why? @ -None What meds were considered but not given or refused? Why? @ -None Did you discuss the management of the patient with other professionals (professionals i.e. , PA, MANAGER OUTREACH, lab, RT, psych nurse, marriage and family social worker, yarn winder, teacher, placement officer, home health care case manager)? Give summary @ -No Was smoking cessation discussed for >3mins.? @ -No Was critical care preformed (if so, how long)? @Yes, 35 minutes Were there social determinants of health that impacted care today? How? (Homelessness, low income, unemployed, alcoholism, drug addiction, transportation, low edu. Level, literacy, decrease access to med. care, alf, rehab)? @ -No Was there de-escalation of care discussed even if they declined (Discuss DNR or withdrawal of care, Hospice)? @ -No What co-morbidities impacted this encounter? (DM, HTN, Smoking, COPD, CAD, C ancer, CVA, ARF, Chemo, Hep., AIDS, mental health diagnosis, sleep apnea, morbid obesity)? @ -Hypertension Was patient admitted / discharged? Hospital course, mention meds given and route, prescriptions, significant lab abnormalities, going to OR and other pertinent info. @ -Admission-patient is a 69-year-old gentleman past medical history of hypertension presenting for pressure-like chest pain radiating down his left arm starting at 3 AM this morning. On my assessment pt is somewhat uncomfortable appearing, in no acute distress, nontoxic. Lungs clear to auscultation bilaterally, normal S1-S2 on cardiac exam. No lower extremity edema. Patient's symptoms are very concerning for ACS. Initial EKG did appear to show Q waves but no significant elevations or reciprocal depressions. Ordered morphine, nitro, 324 mg aspirin, troponin, BNP, D-dimer, CBC, CMP chest x-ray. Patient agreeable with plan of care. On reassessment, patient's chest pain improved to a 4 out of 10 after receiving 1 sublingual nitro and morphine. Patient received additional sublingual nitro with continued improvement of pain to pain 1 out of 10. He is currently resting comfortably. Troponin 0.402. Serial EKGs were performed without evolving ischemic changes. Presentation consistent with NSTEMI. Patient was started on heparin infusion and admitted for further treatment. Updated pt to findings and plan of care to which he was agreeable. Additionally BNP was elevated at 1980, chest x-ray did reflect some volume overload. Ordered 40 mg IV Lasix. Case was discussed with BASSEM Avilez, who kindly accepted pt for admission. Undiagnosed new problem with uncertain prognosis? @ -No Drug Therapy requiring intensive monitoring for toxicity (Heparin, Nitro, Insulin, Cardizem)? @ -No Were any procedures done? @ -No Diagnosis/symptom? NSTEMI, new onset CHF Acute, or Chronic, or Acute on Chronic? @acute Uncomplicated (without systemic symptoms) or Complicated (systemic symptoms)? @ complicated Side effects of treatment? @ -No Exacerbation, Progression, or Severe Exacerbation? @ -No Poses a threat to life or bodily function? How? (Chest pain, USA, ME, pneumonia, PE, COPD, DKA, ARF, appy, cholecystitis, CVA, Diverticulitis, Homicidal, Suicidal, threat to staff... and all critical care pts) @Yes, if left untreated could progress to ME and - Lab Data Result diagrams: 09/28/24 06:06 09/28/24 06:06 Lab Results 09/28/24 09/28/24 09/28/24 Range/Units 06:06 06:06 06:06 WBC 7.80 (4.50-10.00) 10*3/uL RBC 5.11 (4.40-5.60) 10*6/uL Hgb 15.4 (13.0-17.0) g/dL Hct 45.9 (39.6-50.0) % MCV 89.8 (80.0-97.0) fL MCH 30.1 (27.0-32.0) pg MCHC 33.6 (32.0-37.0) g/dL Plt Count 284 (140-440) 10*3/uL MPV 9.5 (9.5-12.2) fL Immature Gran % (Auto) 0.4 % Neutrophils % 64.9 % Lymphocytes % 25.9 % Monocytes % 6.9 % Eosinophils % 1.5 % Basophils % 0.4 % Immature Gran # 0.03 (0.00-0.04) 10*3/uL Neutrophils # 5.06 (1.80-7.70) 10*3/uL Lymphocytes # 2.02 (0.90-5.00) 10*3/uL Monocytes # 0.54 (0.20-1.00) 10*3/uL Eosinophils # 0.12 (0.04-0.35) 10*3/uL Basophils # 0.03 (0.00-0.10) 10*3/uL PT 10.9 (10.0-12.5) sec INR 1.0 (<1.2) APTT 25.1 (22.0-30.0) sec D-Dimer 0.48 (<0.60) mg/L FEU Sodium 139 (137-145) mmol/L Potassium 4.6 (3.5-5.1) mmol/L Chloride 104 (98-107) mmol/L Carbon Dioxide 25 (22-30) mmol/L Anion Gap 10 mmol/L BUN 17 (9-20) mg/dL Creatinine 1.20 (0.66-1.25) mg/dL Est GFR (CKD-EPI)AfAm 71 (>60 ml/min/1.73 sqM) Est GFR (CKD-EPI)NonAf 62 (>60 ml/min/1.73 sqM) Glucose 182 H (74-99) mg/dL Calcium 9.3 (8.4-10.2) mg/dL Magnesium 1.8 (1.6-2.3) mg/dL Total Bilirubin 0.7 (0.2-1.3) mg/dL AST 31 (17-59) U/L ALT 19 (4-49) U/L Alkaline Phosphatase 69 (38-126) U/L Troponin I (0.000-0.034) ng/mL NT-Pro-B Natriuret Pep 1980 pg/mL Total Protein 8.4 H (6.3-8.2) g/dL Albumin 4.4 (3.5-5.0) g/dL 09/28/24 Range/Units 06:06 WBC (4.50-10.00) 10*3/uL RBC (4.40-5.60) 10*6/uL Hgb (13.0-17.0) g/dL Hct (39.6-50.0) % MCV (80.0-97.0) fL MCH (27.0-32.0) pg MCHC (32.0-37.0) g/dL Plt Count (140-440) 10*3/uL MPV (9.5-12.2) fL Immature Gran % (Auto) % Neutrophils % % Lymphocytes % % Monocytes % % Eosinophils % % Basophils % % Immature Gran # (0.00-0.04) 10*3/uL Neutrophils # (1.80-7.70) 10*3/uL Lymphocytes # (0.90-5.00) 10*3/uL Monocytes # (0.20-1.00) 10*3/uL Eosinophils # (0.04-0.35) 10*3/uL Basophils # (0.00-0.10) 10*3/uL PT (10.0-12.5) sec INR (<1.2) APTT (22.0-30.0) sec D-Dimer (<0.60) mg/L FEU Sodium (137-145) mmol/L Potassium (3.5-5.1) mmol/L Chloride (98-107) mmol/L Carbon Dioxide (22-30) mmol/L Anion Gap mmol/L BUN (9-20) mg/dL Creatinine (0.66-1.25) mg/dL Est GFR (CKD-EPI)AfAm (>60 ml/min/1.73 sqM) Est GFR (CKD-EPI)NonAf (>60 ml/min/1.73 sqM) Glucose (74-99) mg/dL Calcium (8.4-10.2) mg/dL Magnesium (1.6-2.3) mg/dL Total Bilirubin (0.2-1.3) mg/dL AST (17-59) U/L ALT (4-49) U/L Alkaline Phosphatase (38-126) U/L Troponin I 0.402 H* (0.000-0.034) ng/mL NT-Pro-B Natriuret Pep pg/mL Total Protein (6.3-8.2) g/dL Albumin (3.5-5.0) g/dL Disposition Clinical Impression: Acute non-ST elevation myocardial infarction (NSTEMI), New onset of congestive heart failure Disposition: ADMITTED IP TO THIS HOSP Condition: Stable Referrals: None,Stated [Primary Care Provider] - 1-2 days
[2024-09-28] MEDS: ASPIRIN 81 MG PO STA (06:11)
[2024-09-28] MEDS: ONDANSETRON 4 MG/2 ML VIAL IVP STA ×2 (06:12→09:16)
[2024-09-28] MEDS: MORPHINE SULFATE 4 MG/ML SYRINGE IVP STA ×2 (06:14→09:20)
[2024-09-28 06:25] LABS: Basophils # (A) 0.03 10*3/uL (0.00-0.10); Basophils % (A) 0.4 %; Eosinophils # (A) 0.12 10*3/uL (0.04-0.35); Eosinophils % (A) 1.5 %; HCT 45.9 % (39.6-50.0); HGB 15.4 g/dL (13.0-17.0); Lymphocytes # (A) 2.02 10*3/uL (0.90-5.00); Lymphocytes % (A) 25.9 %; MCH 30.1 pg (27.0-32.0); MCHC 33.6 g/dL (32.0-37.0); MCV 89.8 fL (80.0-97.0); Mean Platelet Volume 9.5 fL (9.5-12.2); Monocytes # (A) 0.54 10*3/uL (0.20-1.00); Monocytes % (A) 6.9 %; Neutrophils # (A) 5.06 10*3/uL (1.80-7.70); Neutrophils % (A) 64.9 %; Platelet Count 284 10*3/uL (140-440); RBC 5.11 10*6/uL (4.40-5.60); RDW 15.9 % (11.5-14.5)
--- NOTE | 2024-09-28 06:31 | XR ---
EXAMINATION TYPE: XR chest 2V DATE OF EXAM: 09/28/2024 CLINICAL INDICATION: Male, 69 years old with history of Chest Pain, TECHNIQUE: Frontal and lateral views of the chest are obtained. COMPARISON: Chest x-ray March 03, 2023 FINDINGS: There is mild cardiomegaly. Increased particularly opacities are seen throughout the lungs bilaterally greatest inferiorly. The osseous structures are intact. IMPRESSION: There is new cardiomegaly with suspected moderate interstitial edema. Correlate for CHF e xacerbation/fluid overload state. Parenchymal fibrosis and/or atypical infiltrates are in the differe ntial. [facility], , 09/28/2024 6:29 AM
[2024-09-28 06:37] LABS: ALT 19 U/L (4-49); AST 31 U/L (17-59); African American GFR (CKD) 71 (>60 ml/min/1.73 sqM); Albumin 4.4 g/dL (3.5-5.0); Alkaline Phosphatase 69 U/L (38-126); Anion Gap 10 mmol/L; Blood Urea Nitrogen 17 mg/dL (9-20); Calcium 9.3 mg/dL (8.4-10.2); Carbon Dioxide 25 mmol/L (22-30); Chloride 104 mmol/L (98-107); Glucose 182 mg/dL (74-99); Magnesium 1.8 mg/dL (1.6-2.3); Non-African American GFR(CKD) 62 (>60 ml/min/1.73 sqM); Potassium 4.6 mmol/L (3.5-5.1); Sodium 139 mmol/L (137-145); Total Bilirubin 0.7 mg/dL (0.2-1.3); Total Protein 8.4 g/dL (6.3-8.2)
[2024-09-28 06:46] LABS: NT-Pro-B-Type Natriuretic Pept 1980 pg/mL
[2024-09-28 06:53] LABS: Prothrombin Time 10.9 sec (10.0-12.5)
[2024-09-28 06:54] LABS: Partial Thromboplastin Time 25.1 sec (22.0-30.0)
[2024-09-28] MEDS ORDERED: HEPARIN SODIUM 1,000 UN/ML (10ML VL) IV PRN (06:56)
[2024-09-28] MEDS: NITROGLYCERIN SL TABS 0.4 MG TAB SUBLINGUAL PRN (06:57)
[2024-09-28] MEDS ORDERED: NITROGLYCERIN SL TABS 0.4 MG TAB SUBLINGUAL PRN ×2 (07:41→09:03)
[2024-09-28] MEDS ORDERED: ACETAMINOPHEN TAB 325 MG TAB PO PRN (07:41)
[2024-09-28] MEDS ORDERED: MORPHINE SULFATE 2 MG/ML SYRINGE IVP PRN (07:41)
[2024-09-28] MEDS ORDERED: ALPRAZolam 0.25 MG TAB PO PRN ×2 (07:41→09:03)
[2024-09-28] MEDS ORDERED: ALPRAZolam 0.5 MG TAB PO PRN (09:03)
[2024-09-28] MEDS ORDERED: ASPIRIN 325 MG TAB PO STA (09:03)
[2024-09-28] MEDS: ASPIRIN 325 MG TAB PO SCH (09:03)
[2024-09-28] MEDS ORDERED: ASPIRIN 81 MG PO SCH (09:05)
[2024-09-28] MEDS: HEPARIN SOD,PORK IN 0.45% NACL 25,000 UNIT in 0.45% NACL 1 250ML.BAG IV SCH (09:14)
[2024-09-28] MEDS: HEPARIN SODIUM 1,000 UN/ML (10ML VL) IV ONE (09:14)
[2024-09-28] MEDS: ATORVASTATIN 80 MG TAB PO SCH ×2 (09:17→22:40)
[2024-09-28] MEDS: FUROSEMIDE 10 MG/ML 4 ML VIAL IV STA (09:18)
[2024-09-28] MEDS: METOPROLOL TARTRATE 50 MG TAB PO STA (09:19)
[2024-09-28] MEDS: SODIUM CHLORIDE 0.9% 1,000 ML IV SCH (09:19)
[2024-09-28] MEDS: ATORVASTATIN 80 MG TAB PO STA (09:23)
[2024-09-28] MEDS: NITROGLYCERIN OINT 1 INCH/GM PACKET TOPICAL SCH (09:23)
[2024-09-28] MEDS: SODIUM CHLORIDE 0.9% 1,000 ML in EMPTY BAG 1 BAG IV SCH (09:25)
[2024-09-28] MEDS: SODIUM CHLORIDE 0.9% 1,000 ML IV ONE (09:34)
[2024-09-28] MEDS: HEPARIN SODIUM,PORCINE 10,000 UNIT in SODIUM CHLORIDE 0.9% 1,000 ML IRRIGATION PRN (09:35)
[2024-09-28] MEDS: HEPARIN SODIUM,PORCINE (1 ML) 2,500 UNIT in SODIUM CHLORIDE 0.9% 250 ML IRRIGATION PRN (09:35)
[2024-09-28] MEDS: MIDAZOLAM 2 MG/2 ML VIAL IVP ONE (09:58)
[2024-09-28] MEDS: LIDOCAINE 1% INJ 10MG/ML (20 ML MDV) SQ ONE (10:01)
[2024-09-28] MEDS: VERAPAMIL 2.5 MG/ML 4 ML VIAL INTRAARTER ONE (10:09)
[2024-09-28] MEDS: HEPARIN SODIUM 1,000 UN/ML (10ML VL) IVP ONE (10:11)
--- NOTE | 2024-09-28 10:23 | P.CRDCN ---
History of Present Illness History of present illness: HISTORY OF PRESENT ILLNESS: This is a 69-year-old female male with a past medical history significant for hypertension and marijuana use. Patient does not follow with a patient financial services coordinator. We have been asked to see the patient in consultation for non-STEMI. Patient examined at the bedside in the emergency room. Patient states that he woke up at 3:00 this morning with pain in the middle of his chest. He denied any radiation of the pain. He denied any shortness of breath. Patient was found to have elevated troponins and was started on IV heparin. He denies any chest pain or pressure at the time of examination. He reports any nicotine use or alcohol use. He does report marijuana use and states he smoked marijuana within the past week. Denies any known history of CAD. Additionally, patient states he does not have a PCP but used to follow with Dr. Cohen. DIAGNOSTICS: - EKG reveals sinus mechanism with nonspecific ST-T wave changes. LVH. - Chest xray new cardiomegaly with suspected moderate interstitial edema. - Laboratory data: WBC 7.80. Hemoglobin 15.2. Platelet count 284. D-dimer 0.48. Sodium 139. Potassium 4.6. BUN 17. Creatinine 1.20. Troponin 0.402. proBNP 1980. - Current home cardiac medications include none. - No previous echocardiogram, stress test, or cardiac catheterization available in EMR for review REVIEW OF SYSTEMS: At the time of my exam: CONSTITUTIONAL: Denies fever or chills. HEENT: Denies blurred vision, vision changes, or eye pain. Denies hemoptysis CARDIOVASCULAR: Denies chest pain. Denies orthopnea. Denies PND. Denies palpitat ions RESPIRATORY: Denies shortness of breath. GASTROINTESTINAL: Denies abdominal pain. Denies nausea or vomiting. HEMATOLOGIC: Denies bleeding disorders. GENITOURINARY: Denies any blood in urine. SKIN: Denies pruitis. Denies rash. PHYSICAL EXAM: VITAL SIGNS: Reviewed. GENERAL: Well-developed in no acute distress. HEENT: Head is normocephalic. Pupils are equal, round. Sclerae anicteric. Mucous membranes of the mouth are moist. Neck supple. No JVD or thyromegaly LUNGS: Respirations even and unlabored. Lungs essentially clear to auscultation bilaterally. HEART: Regular rate and rhythm. S1 and S2 heard. ABDOMEN: Soft. Nondistended. Nontender. EXTREMITIES: Normal range of motion. No clubbing or cyanosis. Peripheral pulses intact. No lower extremity edema NEUROLOGIC: Awake and alert. Oriented x 3. ASSESSMENT: Non-STEMI History of hypertension, not on antihypertensive medications outpatient Hyperglycemia, rule out diabetes, hemoglobin A1c pending Marijuana use Obesity: BMI 31.9 PLAN: Obtain 2D echo to assess cardiac structure and function Add aspirin 81 mg daily and atorvastatin 80 mg at night Add metoprolol tartrate 25 mg twice a day Add Nitropaste Continue IV heparin Begin IV fluid hydration Check lipid panel and hemoglobin A1c Patient to undergo cardiac catheterization today with Dr. Starr Further recommendations pending patient course Nurse practitioner note has been reviewed by physician. Signing provider agrees with the documented findings, assessment, and plan of care documented by PSYCHOPAEDIC NURSE as a scribe. Past Medical History Past Medical History: Hypertension History of Any Multi-Drug Resistant Organisms: None Reported Past Surgical History: No Surgical Hx Reported Past Psychological History: No Psychological Hx Reported Smoking Status: Never smoker Past Alcohol Use History: None Reported Past Drug Use History: Marijuana Medications and Allergies Home Medications Medication Instructions Recorded Confirmed Type No Known Home Medications 09/28/24 09/28/24 History Allergies Allergy/AdvReac Type Severity Reaction Status Date / Time amlodipine Allergy Rash/Hives Verified 09/28/24 07:36 lisinopril Allergy "put Verified 09/28/24 07:36 patient in coma" Physical Exam Vitals: Vital Signs Temp Pulse Resp BP Pulse Ox 09/28/24 09:12 96 18 138/101 95 09/28/24 07:20 138/97 09/28/24 06:22 101 H 16 159/98 90 L 09/28/24 06:07 105 H 16 181/105 93 L 09/28/24 04:48 97.6 F 111 H 18 145/107 97 Intake and Output 09/27/24 09/28/24 09/28/24 22:59 06:59 14:59 Intake Total 0.49 Balance 0.49 Intake: Intake, IV Titration 0.49 Amount Heparin Sod,Pork in 0.45% 0.49 NaCl 25,000 unit In 0.45 % NaCl 1 250ml.bag @ 12 UNITS/KG/HR 9.798 mls/hr IV .Q24H [facility] Rx#: [id number] Other: Weight 81.647 kg Results 09/28/24 06:06 09/28/24 06:06 Cardiac Enzymes 09/28/24 09/28/24 Range/Units 06:06 06:06 AST 31 (17-59) U/L Troponin I 0.402 H* (0.000-0.034) ng/mL Coagulation 09/28/24 Range/Units 06:06 PT 10.9 (10.0-12.5) sec APTT 25.1 (22.0-30.0) sec CBC 09/28/24 Range/Units 06:06 WBC 7.80 (4.50-10.00) 10*3/uL RBC 5.11 (4.40-5.60) 10*6/uL Hgb 15.4 (13.0-17.0) g/dL Hct 45.9 (39.6-50.0) % Plt Count 284 (140-440) 10*3/uL Comprehensive Metabolic Panel 09/28/24 Range/Units 06:06 Sodium 139 (137-145) mmol/L Potassium 4.6 (3.5-5.1) mmol/L Chloride 104 (98-107) mmol/L Carbon Dioxide 25 (22-30) mmol/L BUN 17 (9-20) mg/dL Creatinine 1.20 (0.66-1.25) mg/dL Glucose 182 H (74-99) mg/dL Calcium 9.3 (8.4-10.2) mg/dL AST 31 (17-59) U/L ALT 19 (4-49) U/L Alkaline Phosphatase 69 (38-126) U/L Total Protein 8.4 H (6.3-8.2) g/dL Albumin 4.4 (3.5-5.0) g/dL Current Medications Generic Name Dose Route Start Last Admin Trade Name Freq PRN Reason Stop Dose Admin Acetaminophen 650 mg 09/28/24 07:41 Acetaminophen Tab 325 Mg Tab PO Q6HR PRN Pain Alprazolam 0.25 mg 09/28/24 09:03 Alprazolam 0.25 Mg Tab PO Q6HR PRN Mild Anxiety Alprazolam 0.5 mg 09/28/24 09:03 Alprazolam 0.5 Mg Tab PO Q6HR PRN Moderate Anxiety Aspirin 81 mg 09/29/24 09:00 Aspirin 81 Mg PO DAILY TAY Atorvastatin Calcium 80 mg 09/28/24 21:00 Atorvastatin 80 Mg Tab PO HS TAY Heparin Sodium (Porcine) 0 unit 09/28/24 06:56 Heparin Sodium 1,000 Un/Ml (10ml Vl) IV PER PROTOCOL PRN Low PTT Protocol Heparin Sodium/Sodium Chloride 250 mls @ 9.798 mls/hr 09/28/24 07:00 09/28/24 09:17 25,000 unit/ Sodium Chloride IV 0 units/kg/hr .Q24H TAY 0 mls/hr Titration Protocol 12 UNITS/KG/HR Sodium Chloride 1,000 mls @ 75 mls/hr 09/28/24 09:00 09/28/24 09:19 Saline 0.9% IV 75 mls/hr .[id number] TAY Administration Heparin Sodium (Porcine) 10, 1,001 mls @ 999 mls/hr 09/29/24 07:00 09/28/24 09:35 000 unit/ Sodium Chloride IRRIGATION 09/29/24 23:00 0 mls ONCE PRN Administration INTRA-OP Heparin Sodium (Porcine) 2,500 250.5 mls @ 250 mls/hr 09/29/24 07:00 09/28/24 09:35 unit/ Sodium Chloride IRRIGATION 09/29/24 23:00 0 mls ONCE PRN Administration INTRA-OP Sodium Chloride 1,000 ml/ IV 1,000 mls @ 81.647 mls/hr 09/28/24 09:15 09/28 09:25 Solution IV 81.647 mls/hr .[id number] TAY Administration 1 ML/KG/HR Metoprolol Tartrate 25 mg 09/28/24 21:00 Metoprolol Tartrate 25 Mg Tab PO BID TAY Morphine Sulfate 2 mg 09/28/24 07:41 Morphine Sulfate 2 Mg/Ml Syringe IVP 10/01/24 23:00 Q5M PRN Chest Pain Nitroglycerin 0.4 mg 09/28/24 07:41 Nitroglycerin Sl Tabs 0.4 Mg Tab SUBLINGUAL Q5M PRN Chest Pain Nitroglycerin 1 inch 09/28/24 09:15 09/28/24 09:23 Nitroglycerin Oint 1 Inch/Gm Packet TOPICAL 1 inch Q8HR TAY Administration Intake and Output 09/27/24 09/28/2425 22:59 06:59 14:59 Intake Total 0.49 Balance 0.49 Intake: Intake, IV Titration 0.49 Amount Heparin Sod,Pork in 0.45% 0.49 NaCl 25,000 unit In 0.45 % NaCl 1 250ml.bag @ 12 UNITS/KG/HR 9.798 mls/hr IV .Q24H [facility] Rx#: [id number] Other: Weight 81.647 kg 09/28/24 06:06 09/28/24 06:06
[2024-09-28] MEDS: IOPAMIDOL-370 100ML BTL INTRATHECA ONE (10:28)
[2024-09-28] MEDS: FUROSEMIDE 10 MG/ML 2 ML VIAL IVP ONE (10:28)
--- NOTE | 2024-09-28 10:39 | P.CARDCATH ---
Date of Procedure: 09/28/24 Description of Procedure: History: Patient was referred for cardiac catheterization to evaluate for CAD. This patient was seen by me in the emergency room today. He came in at about 3:00 with chest pressure strongly suggestive of angina with precordial ST-T changes and QS pattern. Initial troponin was elevated blood pressure was also elevated but then normalized. He has hypertension and marijuana use but has not seen PCP lately. Has not been taking any antihypertensives. In view of his symptoms stacey rderline troponin elevation and abnormal EKG I recommended coronary angiogram after initiation with the beta-blockers. Risks benefits options and rationale were explained. No family was available. He understood all details and wished to proceed with the procedure Procedure Details: The risks, benefits, complications, treatment options, and expected outcomes were discussed with the patient. The patient and/or family concurred with the proposed plan, giving informed consent. Patient was brought to the geotechnical laboratory technician after IV hydration was begun and oral premedication was given. Patient was further sedated with midazolam. Patient was prepped and draped in the usual manner. Under strict aseptic precautions and local anesthesia a 6 Hungarian introducer was placed in the right radial artery. Using a JL 3/5 and a JR 4/0 catheters I performed coronary angiography and the same JR catheter was used to check LV pressures and LV gram was not performed. After the procedure was completed the sheaths and catheters were all removed. Hemostasis was achieved with TR band. Saturation in the fingers of the right hand was about 94%. Moderate conscious sedation time was 22 minutes. Patient's oxygen saturation hemodynamics and EKG were monitored closely. Findings: Hemodynamics: Left ventricle end-diastolic pressure was elevated at 22 mmHg. No gradient across aortic valve Left Main: Short patent vessel no significant disease bifurcates into LAD and circumflex LAD: Good caliber good distribution vessel runs along the anterior wall gives off septal and diagonal branches. Minor irregularities no significant CIRC: Nondominant vessel fair caliber and distribution gives off a good sized obtuse marginal branch that runs distally has a posterior lateral branch no significant disease only minor irregularities noted. There is a small high obtuse marginal as well RCA: Technically dominant vessel inferior takeoff tortuous no significant disease large caliber and distribution distally bifurcates into PDA and PLV. PLV is small PDA is a large has minor irregularities no significant disease. SVG(s): FARHAD: LV: LV gram not performed Closure Device: TR band Complications: None Estimated Blood Loss: Minimal Impression: Elevated filling pressures no gradient right dominant system no significant obstructive CAD Pre Procedure Diagnosis: Acute ischemic syndrome with possible non-ST elevation NV Final Post Procedure Diagnosis: Nonischemic cardiomyopathy type picture Recommendation: Obtain echocardiogram continue aggressive medical therapy cautious diuresis initiate antihypertensive management. Discussed my thoughts in detail with the patient and no family available. He will be in the hospital for 24 to 48 hours to optimize his care. Await echocardiogram Complications: None; patient tolerated the procedure well. Disposition: Extended stay- hemodynamically stable. Condition: Stable Discharge Disposition: Discharge patient after optimizing management probably in the next 24 to 48 hours..
[2024-09-28] MEDS: METOPROLOL TARTRATE 25 MG TAB PO SCH ×2 (19:17→22:39)
[2024-09-28] MEDS: HEPARIN SODIUM,PORCINE 5,000 UNIT/ML 1 ML VIAL SQ SCH (22:39)
[2024-09-29 02:00] LABS: Appearance,Urine Clear (Clear); Bilirubin,Urine Negative (Negative); Blood,Urine Negative (Negative); Color,Urine Light Yellow; Glucose,Urine (UA) Negative (Negative); Ketones,Urine Negative (Negative); Leukocyte Esterase,Urine Negative (Negative); Nitrite,Urine Negative (Negative); Protein,Urine 1+ (Negative); RBC,Urine 1 /hpf (0-5); Specific Gravity,Urine 1.034 (1.001-1.035); Urobilinogen,Urine <2.0 mg/dL (<2.0); WBC,Urine 1 /hpf (0-5)
[2024-09-29 02:49] LABS: Influenza A Not Detected (Not Detectd); Influenza B Not Detected (Not Detectd); RSV Not Detected (Not Detectd)
--- NOTE | 2024-09-29 02:54 | HP ---
HISTORY AND PHYSICAL CHIEF COMPLAINT: Shortness of breath and chest pain. HISTORY OF PRESENT ILLNESS: This 69-year-old gentleman with a past medical history of hypertension, who was admitted with chest pain, shortness of breath. The patient woke up from sleep and pressure-type of pain radiating to the left arm was noted. The troponin was found to be elevated up to 1.360 indicating acute qua-CZ-ddattmv elevation myocardial infarction. EKG showed non-progression R-waves in the EKG and CT changes also. The official 2D echo report is not available at this time. The patient underwent a cardiac catheterization, which showed no significant obstructive coronary disease, but however, the patient's ejection fraction about 15% to 20% according to staff. The patient was admitted for further evaluation. 2D echo with Doppler is pending at this time. There is no history of any fever, rigors, chills at this time. PAST MEDICAL HISTORY: Hypertension. Rest of the history in the chart is also noted. HOME MEDICATIONS: None. ALLERGIES: Amiodarone, lisinopril. FAMILY HISTORY: No history of heart disease or strokes in the family. SOCIAL HISTORY: History of THC. REVIEW OF SYSTEMS: A 14-point review of systems negative except as mentioned earlier. PHYSICAL EXAMINATION: VITAL SIGNS: Pulse is 86, blood pressure 102/66, respirations 16. HEENT: Conjunctivae normal. NECK: No jugular venous distention. CARDIOVASCULAR: S1, S2 muffled. RESPIRATION: Breath sounds diminished at the bases. A few scattered rhonchi. ABDOMEN: Soft, nontender. LEGS: No edema. No swelling. NERVOUS SYSTEM: No focal deficit. LABORATORY DATA: Troponin 1.360. Glucose is 182. ASSESSMENT: 1. Possible acute bqh-UW-sdbntxs elevation myocardial infarction secondary to coronary spasm. 2. Congestive heart failure acute exacerbation. 3. Low ejection fraction, possible cardiomyopathy, nonischemic, exact etiology undetermined. 4. Hypertension. 5. Troponin elevated up to 1.360. RECOMMENDATIONS: This 69-year-old gentleman presented with multiple complex medical issues. We will monitor the patient closely. Continue the current medications. Continue symptomatic treatment. Closely follow with Cardiology. Chest x-ray showed CHF. Recommend to continue with Lasix and rest of the medications. Closely monitor. Guarded prognosis because of multiple complex medical issues. Further recommendations to follow. See orders for details. MMODL / IJN: [id number] /
[2024-09-29 03:12] LABS: Amphetamine Screen,Urine Not Detected (NotDetected); Barbiturate Screen,Urine Not Detected (NotDetected); Benzodiazepines Screen,Urine Not Detected (NotDetected); Cocaine Screen,Urine Not Detected (NotDetected); Methadone Screen, Urine Not Detected (NotDetected); Opiate Screen,Urine Detected (NotDetected); Oxycodone Screen, Urine Not Detected (NotDetected); Phencyclidine Screen,Urine Not Detected (NotDetected); Tricyclic Antidepressant,Urine Not Detected (NotDetected); Urn Cannabinoid Scrn Detected (NotDetected)
[2024-09-29 07:56] LABS: Basophils # (A) 0.03 10*3/uL (0.00-0.10); Basophils % (A) 0.4 %; Eosinophils # (A) 0.17 10*3/uL (0.04-0.35); Eosinophils % (A) 2.4 %; HCT 44.2 % (39.6-50.0); HGB 14.2 g/dL (13.0-17.0); Lymphocytes # (A) 2.67 10*3/uL (0.90-5.00); MCH 29.2 pg (27.0-32.0); MCHC 32.1 g/dL (32.0-37.0); MCV 90.9 fL (80.0-97.0); Mean Platelet Volume 9.3 fL (9.5-12.2); Monocytes % (A) 8.5 %; Neutrophils # (A) 3.51 10*3/uL (1.80-7.70); Platelet Count 255 10*3/uL (140-440); RBC 4.86 10*6/uL (4.40-5.60); RDW 15.4 % (11.5-14.5); WBC 7.03 10*3/uL (4.50-10.00)
[2024-09-29] MEDS: FUROSEMIDE 40 MG TAB PO SCH (08:01)
[2024-09-29] MEDS: LOSARTAN 50 MG TAB PO SCH (08:01)
[2024-09-29] MEDS: ASPIRIN 81 MG PO SCH (08:01)
[2024-09-29 08:07] LABS: African American GFR (CKD) 54 (>60 ml/min/1.73 sqM); Anion Gap 8 mmol/L; Blood Urea Nitrogen 19 mg/dL (9-20); Calcium 9.2 mg/dL (8.4-10.2); Carbon Dioxide 29 mmol/L (22-30); Chloride 102 mmol/L (98-107); Glucose 155 mg/dL (74-99); Magnesium 1.9 mg/dL (1.6-2.3); Non-African American GFR(CKD) 47 (>60 ml/min/1.73 sqM); Potassium 4.7 mmol/L (3.5-5.1); Sodium 139 mmol/L (137-145)
[2024-09-29 08:08] LABS: Prothrombin Time 11.3 sec (10.0-12.5)
[2024-09-29] MEDS ORDERED: ASPIRIN 325 MG TAB PO SCH (09:00)
[2024-09-29] MEDS ORDERED: amLODIPine 5 MG TAB PO SCH (09:00)
[2024-09-29 10:26] LABS: Chol/HDL Ratio 5.18 Ratio; LDL Cholesterol,Calculated 49.7 mg/dL (0.0-131.0)
--- NOTE | 2024-09-29 12:27 | CA ---
Transthoracic Echo Report Name: Driss Arevalo Age: 69 Gender: M : 1955 Exam Date: 09/28/2024 10:54 Exam Location: [place] [facility] Ht (in): 63 Wt (lb): 180 Ordering Physician: Josephine Zacarias MD Attending/Referring Phys: Clutch Assembler Denise Al RDCS Procedure CPT: Indications: nstemi Cardiac Hx: Technical Quality: Good Contrast 1: Definity Total Dose (mL): 2 Contrast 2: Total Dose (mL): MEASUREMENTS (Male / Female) Normal Values 2D ECHO LV Diastolic Diameter PLAX 5.8 cm 4.2 - 5.9 / 3.9 - 5.3 cm LV Systolic Diameter PLAX 5.4 cm IVS Diastolic Thickness 1.4 cm 0.6 - 1.0 / 0.6 - 0.9 cm LVPW Diastolic Thickness 1.6 cm 0.6 - 1.0 / 0.6 - 0.9 cm LV Relative Wall Thickness 0.5 RV Internal Dim ED PLAX 3.0 cm LA Systolic Diameter LX 4.9 cm 3.0 - 4.0 / 2.7 - 3.8 cm LV Diastolic Volume MOD BP 161.2 cm??? 67 - 155 / 56 - 104 cm??? LV Systolic Volume MOD BP 141.9 cm??? 22 - 58 / 19 - 49 cm??? LV Ejection Fraction MOD BP 12.0 % >= 55 % LV Cardiac Index MOD BP 886.9 cm???/min???m??? LV Diastolic Volume MOD 4C 173.6 cm??? LV Systolic Volume MOD 4C 152.8 cm??? LV Ejection Fraction MOD 4C 12.0 % LV Cardiac Index MOD 4C 956.4 cm???/min???m??? LV Diastolic Length 4C 8.4 cm LV Systolic Length 4C 8.3 cm LV Diastolic Volume MOD 2C 149.1 cm??? LV Systolic Volume MOD 2C 121.3 cm??? LV Ejection Fraction MOD 2C 18.7 % LV Cardiac Index MOD 2C 1279.3 cm???/min???m??? LV Diastolic Length 2C 8.5 cm LV Systolic Length 2C 9.0 cm LA Volume 73.3 cm??? 18 - 58 / 22 - 52 cm??? LA Volume Index 37.9 cm???/m??? 16 - 28 cm???/m??? M-MODE Aortic Root Diameter MM 3.2 cm AV Cusp Separation MM 2.0 cm DOPPLER AV Peak Velocity 91.5 cm/s AV Peak Gradient 3.3 mmHg MV Area PHT 6.6 cm??? Mitral E Point Velocity 78.6 cm/s Mitral A Point Velocity 51.2 cm/s Mitral E to A Ratio 1.5 MV Deceleration Time 114.1 ms TR Peak Velocity 284.6 cm/s TR Peak Gradient 32.4 mmHg Right Ventricular Systolic Press 37.2 mmHg FINDINGS Left Ventricle Left ventricular ejection fraction is estimated at 10-15 %. Severe global hypokinesis. Dilated right ventricle.Moderately increased left ventricular wall thickness. Right Ventricle Normal right ventricular size. Mild pulmonary hypertension. Right Atrium Normal right atrial size. No right atrial thrombus or mass seen. Left Atrium Moderately increased left atrial diameter. Moderately increased left atrial volume. Mildly increased left atrial area. No left atrial thrombus or mass present. Mitral Valve Structurally normal mitral valve. Mild mitral regurgitation. Aortic Valve Trileaflet aortic valve. . No aortic valve stenosis or regurgitation. Tricuspid Valve Structurally normal tricuspid valve. Mild tricuspid regurgitation. Pulmonic Valve Structurally normal pulmonic valve. Mild pulmonic regurgitation. Pericardium No pericardial effusion. Aorta Normal size aortic root and proximal ascending aorta. CONCLUSIONS Technically difficult study. Definity ECHO contrast used for improved visualization of the endocardial borders (inadequate visualization of two or more contiguous segments). Severe impairment of the left ventricular systolic function with global hypokinesis Mild tricuspid regurgitation and mitral regurgitation with mild pulmonary hypertension Previewed by: Dr. Yaritza Calvo MD (Electronically Signed) Final Date: 28 September 2024 18:38
--- NOTE | 2024-09-29 13:15 | P.PN ---
Subjective HISTORY OF PRESENT ILLNESS: This is a 69-year-old female male with a past medical history significant for hypertension and marijuana use. 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 We have been asked to see the patient in consultation for non-STEMI. Patient examined at the bedside in the emergency room. Patient states that he woke up at 3:00 this morning with pain in the middle of his chest. He denied any radiation of the pain. He denied any shortness of breath. Patient was found to have elevated troponins and was started on IV heparin. He denies any chest pain or pressure at the time of examination. He reports any nicotine use or alcohol use. He does report marijuana use and states he smoked marijuana within the past week. Denies any known history of CAD. Additionally, patient states he does not have a PCP but used to follow with Dr. Cohen. DIAGNOSTICS: - EKG reveals sinus mechanism with nonspecific ST-T wave changes. LVH. - Chest xray new cardiomegaly with suspected moderate interstitial edema. - Laboratory data: WBC 7.80. Hemoglobin 15.2. Platelet count 284. D-dimer 0.48. Sodium 139. Potassium 4.6. BUN 17. Creatinine 1.20. Troponin 0.402. proBNP 1980. - Current home cardiac medications include none. - No previous echocardiogram, stress test, or cardiac catheterization available in EMR for review 09/29/2024 Patient underwent cardiac catheterization yesterday with Dr. Starr with no evidence of obstructive CAD. Patient examined this morning at bedside. Patient denies chest pain or pressure. Denies shortness of breath. Echocardiogram completed revealing ejection fraction 10 to 15%, global hypokinesis, mild pulmonary hypertension, mild MR, mild TR PHYSICAL EXAM: VITAL SIGNS: Reviewed. GENERAL: Well-developed in no acute distress. HEENT: Head is normocephalic. Pupils are equal, round. Sclerae anicteric. Mucous membranes of the mouth are moist. Neck supple. No JVD or thyromegaly LUNGS: Respirations even and unlabored. Lungs essentially clear to auscultation bilaterally. HEART: Regular rate and rhythm. S1 and S2 heard. ABDOMEN: Soft. Nondistended. Nontender. EXTREMITIES: Normal range of motion. No clubbing or cyanosis. Peripheral pulses intact. No lower extremity edema NEUROLOGIC: Awake and alert. Oriented x 3. ASSESSMENT: Non-STEMI, s/p cardiac catheterization with no evidence of obstructive CAD Nonischemic cardiomyopathy, ejection fraction 10 to 15% History of hypertension, not on antihypertensive medications outpatient Hyperglycemia, rule out diabetes, hemoglobin A1c pending Marijuana use Obesity: BMI 31.9 Acute kidney injury PLAN: Continue aspirin, Lipitor, Lasix, losartan, and metoprolol Repeat kidney function in AM. If stabilized, consider Farxiga and Aldactone Will consider LifeVest tomorrow Continue to monitor patient for additional 24 hours Possible discharge home tomorrow Further recommendations pending patient course Nurse practitioner note has been reviewed by physician. Signing provider agrees with the documented findings, assessment, and plan of care documented by TIRE SPOTTER as a scribe. Objective - Vital Signs Vital signs: Vital Signs Temp 98.0 F 09/29/24 07:54 Pulse 96 09/29/24 11:05 Resp 16 09/29/24 11:05 BP 126/87 09/29/24 11:05 Pulse Ox 96 09/29/24 11:05 FiO2 Intake & Output 09/28/24 09/29/24 09/29/24 18:59 06:59 18:59 Intake Total 580.49 Output Total 500 Balance 580.49 -500 Weight 81.647 kg 89.6 kg Intake: IV 100 Intake, IV Titration 0.49 Amount Heparin Sod,Pork in 0.45% 0.49 NaCl 25,000 unit In 0.45 % NaCl 1 250ml.bag @ 12 UNITS/KG/HR 9.798 mls/hr IV .Q24H TAY Rx#: [id number] Oral 480 Output: Urine 500 Other: Voiding Method Toilet # Voids 1 4 2 - Labs CBC & Chem 7: 09/29/24 07:34 09/29/24 07:34 Labs: Abnormal Lab Results - Last 24 Hours (Table) 09/28/24 09/28/24 09/28/24 Range/Units 09:06 17:41 17:41 MPV (9.5-12.2) fL Immature Gran # (0.00-0.04) 10*3/uL Creatinine (0.66-1.25) mg/dL Glucose (74-99) mg/dL Hemoglobin A1c 7.4 H (<=6.0) % Troponin I 2.880 H* (0.000-0.034) ng/mL C-Reactive Protein 2.5 H (<1.0) mg/dL Triglycerides (0.00-149.00) mg/dL VLDL Cholesterol, Calc (5.00-40.00) mg/dL HDL Cholesterol (40.00-60.00) mg/dL Urine Protein (Negative) Urine Opiates Screen (NotDetected) U Marijuana (THC) Screen (NotDetected) 09/29/24 09/29/24 09/29/24 Range/Units 01:15 07:34 07:34 MPV 9.3 L (9.5-12.2) fL Immature Gran # 0.05 H (0.00-0.04) 10*3/uL Creatinine 1.51 H (0.66-1.25) mg/dL Glucose 155 H (74-99) mg/dL Hemoglobin A1c (<=6.0) % Troponin I (0.000-0.034) ng/mL C-Reactive Protein (<1.0) mg/dL Triglycerides 284.00 H (0.00-149.00) mg/dL VLDL Cholesterol, Calc 56.80 H (5.00-40.00) mg/dL HDL Cholesterol 25.50 L (40.00-60.00) mg/dL Urine Protein 1+ H (Negative) Urine Opiates Screen Detected H (NotDetected) U Marijuana (THC) Screen Detected H (NotDetected)
--- NOTE | 2024-09-29 21:21 | PN ---
PROGRESS NOTE DATE OF SERVICE: 09/29/2024 SUBJECTIVE: This 69-year-old gentleman, who was admitted with shortness of breath, chest pain, was noted to have significant cardiomyopathy. LifeVest is being pending at this time. No chest pain. No palpitation. PHYSICAL EXAMINATION: VITAL SIGNS: Pulse is 96, blood pressure 120/66, and respirations 16. CHEST: A few scattered rhonchi. ABDOMEN: Soft, nondistended. NERVOUS SYSTEM: No focal deficit. LABORATORY DATA: Reviewed. ASSESSMENT: 1. Possible acute axe-BP-gztoaie elevation myocardial infarction secondary to coronary spasm. 2. Congestive heart failure, acute exacerbation with acute on chronic systolic dysfunction. 3. Low ejection fraction, possible cardiomyopathy, nonischemic, exact etiology undetermined. 4. Hypertension. 5. Troponin elevated up to 1.360. RECOMMENDATIONS: Recommend to continue current management and continue symptomatic treatment. Otherwise continue with reduced dose of Lasix. Repeat labs in the morning. Monitor closely. I would recommend a chest x-ray in the morning. Closely follow with Cardiology, LifeVest. Prognosis guarded. Further recommendations to follow. MMODL / IJN: [id number] /
[2024-09-30 07:52] LABS: Basophils # (A) 0.03 10*3/uL (0.00-0.10); Basophils % (A) 0.4 %; Eosinophils # (A) 0.18 10*3/uL (0.04-0.35); Eosinophils % (A) 2.1 %; HCT 46.4 % (39.6-50.0); HGB 15.2 g/dL (13.0-17.0); Lymphocytes # (A) 3.31 10*3/uL (0.90-5.00); Lymphocytes % (A) 38.8 %; MCH 29.5 pg (27.0-32.0); MCHC 32.8 g/dL (32.0-37.0); MCV 89.9 fL (80.0-97.0); Mean Platelet Volume 9.8 fL (9.5-12.2); Monocytes # (A) 0.81 10*3/uL (0.20-1.00); Monocytes % (A) 9.5 %; Neutrophils # (A) 4.17 10*3/uL (1.80-7.70); Neutrophils % (A) 48.7 %; Platelet Count 302 10*3/uL (140-440); RBC 5.16 10*6/uL (4.40-5.60); RDW 15.1 % (11.5-14.5); WBC 8.54 10*3/uL (4.50-10.00)
[2024-09-30 07:58] VITALS: TEMP 97.6
[2024-09-30] MEDS: polyethylene glycoL 3350 17 GM POWD.PACK PO STA (08:02)
[2024-09-30] MEDS: LORATADINE 10 MG TAB PO SCH (08:02)
[2024-09-30 08:07] LABS: African American GFR (CKD) 55 (>60 ml/min/1.73 sqM); Anion Gap 10 mmol/L; Blood Urea Nitrogen 23 mg/dL (9-20); Calcium 9.5 mg/dL (8.4-10.2); Carbon Dioxide 26 mmol/L (22-30); Chloride 103 mmol/L (98-107); Glucose 152 mg/dL (74-99); Non-African American GFR(CKD) 48 (>60 ml/min/1.73 sqM); Potassium 4.4 mmol/L (3.5-5.1); Sodium 139 mmol/L (137-145)
[2024-09-30] MEDS: IPRATROPIUM-ALBUTEROL 3 ML NEB INHALATION STA (08:09)
--- NOTE | 2024-09-30 08:21 | XR ---
EXAMINATION TYPE: XR chest 1V portable DATE OF EXAM: 09/30/2024 7:12 AM COMPARISON: Chest radiograph from one day prior. CLINICAL INDICATION: Male, 69 years old with history of chf; [facility] TECHNIQUE: XR chest 1V portable Frontal view of the chest. FINDINGS: Lungs/Pleura: There is no evidence of pleural effusion, focal consolidation, or pneumothorax. Pulmonary vascularity: Pulmonary vascular congestion. Heart/mediastinum: Cardiomediastinal silhouette is enlarged. Musculoskeletal: No acute osseous pathology. IMPRESSION: Similar Cardiomegaly and mild pulmonary vascular congestion. Correlate with BNP for congestive heart failure. [facility], , 09/30/2024 8:18 AM
[2024-09-30] MEDS: FLUTICASONE NASAL 50MCG/SPRAY 16GM BTL EA NOSTRIL PRN (08:52)
[2024-09-30 11:11] VITALS: BP 126/87; PULSE 95; RESP 18
--- NOTE | 2024-09-30 11:13 | P.PN ---
Subjective HISTORY OF PRESENT ILLNESS: This is a 69-year-old female male with a past medical history significant for hypertension and marijuana use. 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 We have been asked to see the patient in consultation for non-STEMI. Patient examined at the bedside in the emergency room. Patient states that he woke up at 3:00 this morning with pain in the middle of his chest. He denied any radiation of the pain. He denied any shortness of breath. Patient was found to have elevated troponins and was started on IV heparin. He denies any chest pain or pressure at the time of examination. He reports any nicotine use or alcohol use. He does report marijuana use and states he smoked marijuana within the past week. Denies any known history of CAD. Additionally, patient states he does not have a PCP but used to follow with Dr. Cohen. DIAGNOSTICS: - EKG reveals sinus mechanism with nonspecific ST-T wave changes. LVH. - Chest xray new cardiomegaly with suspected moderate interstitial edema. - Laboratory data: WBC 7.80. Hemoglobin 15.2. Platelet count 284. D-dimer 0.48. Sodium 139. Potassium 4.6. BUN 17. Creatinine 1.20. Troponin 0.402. proBNP 1980. - Current home cardiac medications include none. - No previous echocardiogram, stress test, or cardiac catheterization available in EMR for review 09/29/2024 Patient underwent cardiac catheterization yesterday with Dr. Starr with no evidence of obstructive CAD. Patient examined this morning at bedside. Patient denies chest pain or pressure. Denies shortness of breath. Echocardiogram completed revealing ejection fraction 10 to 15%, global hypokinesis, mild pulmonary hypertension, mild MR, mild TR 09/30/2024 Patient examined this morning at bedside. Patient currently denies chest pain or pressure. He denies shortness of breath. Vital signs are stable. Creatinine remains elevated at 1.48. PHYSICAL EXAM: VITAL SIGNS: Reviewed. GENERAL: Well-developed in no acute distress. HEENT: Head is normocephalic. Pupils are equal, round. Sclerae anicteric. Mucous membranes of the mouth are moist. Neck supple. No JVD or thyromegaly LUNGS: Respirations even and unlabored. Lungs essentially clear to auscultation bilaterally. HEART: Regular rate and rhythm. S1 and S2 heard. ABDOMEN: Soft. Nondistended. Nontender. EXTREMITIES: Normal range of motion. No clubbing or cyanosis. Peripheral pulses intact. No lower extremity edema NEUROLOGIC: Awake and alert. Oriented x 3. ASSESSMENT: Non-STEMI, s/p cardiac catheterization with no evidence of obstructive CAD Nonischemic cardiomyopathy, ejection fraction 10 to 15% History of hypertension, not on antihypertensive medications outpatient Hyperglycemia, rule out diabetes, hemoglobin A1c pending Marijuana use Obesity: BMI 31.9 Acute kidney injury PLAN: Continue aspirin, Lipitor, Lasix, losartan, and metoprolol Decrease Lasix to 20 mg daily Add Aldactone 25 mg daily Consider addition of Farxiga on an outpatient basis No LifeVest upon discharge per Dr. Viveros Patient is stable for discharge home today from a cardiac standpoint Patient to follow-up postdischarge in the office with Dr. Viveros Nurse practitioner note has been reviewed by physician. Signing provider agrees with the documented findings, assessment, and plan of care documented by OPERATIONS PROFESSIONAL as a scribe. Objective - Vital Signs Vital signs: Vital Signs Temp 97.6 F 09/30/24 07:41 Pulse 95 09/30/24 11:10 Resp 18 09/30/24 11:10 BP 126/87 09/30/24 11:10 Pulse Ox 98 09/30/24 11:10 FiO2 Intake & Output 09/29/24 09/30/24 09/30/24 18:59 06:59 18:59 Intake Total 118 10 0 Output Total 1150 450 Balance -1032 -440 0 Weight 89.8 kg Intake: IV 10 Invasive Line 1 10 Oral 118 0 Output: Urine 1150 450 Other: Voiding Method Toilet Toilet Toilet # Voids 2 1 # Bowel Movements 1 - Labs CBC & Chem 7: 09/30/24 07:22 09/30/24 07:22 Labs: Abnormal Lab Results - Last 24 Hours (Table) 09/30/24 Range/Units 07:22 BUN 23 H (9-20) mg/dL Creatinine 1.48 H (0.66-1.25) mg/dL Glucose 152 H (74-99) mg/dL
[2024-09-30] MEDS ORDERED: carvediloL 6.25 MG TAB PO SCH (17:30)
[2024-09-30] MEDS ORDERED: METOPROLOL TARTRATE 50 MG TAB PO SCH (21:00)
[2024-10-01] MEDS ORDERED: FUROSEMIDE 20 MG TAB PO SCH (09:00)
[2024-10-01] MEDS ORDERED: SPIRONOLACTONE 25 MG TAB PO SCH (09:00)
--- NOTE | 2024-10-01 18:45 | P.DS ---
Providers Date of admission: 09/28/24 07:41 Expected date of discharge: 09/30/24 Attending physician: Baltazar Vela Consults: 09/28/24 06:59 Consult Physician Urgent Consulting Provider: [facility] Consult Reason/Comments: NSTEMI Do you want consulting provider notified?: Yes, Notify in am Primary care physician: Stated None Hospital Course: Final diagnosis Acute NSTEMI myocardial infarction secondary to coronary spasm Congestive heart failure acute exacerbation with acute on chronic systolic dysfunction Low EF, cardiomyopathy, nonischemic, exact etiology unknown not a candidate for LifeVest at this time per cardiology Hypertension Obesity with a BMI 35.1 GI prophylaxis DVT prophylaxis Full code Discharge disposition Patient is being discharged in a stable condition with guarded prognosis to home. Patient will follow-up with Dr. Franklin Vela to establish in the outpatient setting upon discharge. Patient is to continue with current medications and close outpatient follow-up with cardiology as scheduled. Total time taken is greater than 35 minutes. Hospital course This is a 69-year-old male who was recently admitted with chest pain with elevated troponin status postcardiac catheterization and is being maximized on medical management per cardiology. Patient is not a candidate for LifeVest at this time and will be followed in the outpatient setting in 1 week. Patient needs to establish with a primary care provider at discharge and resources were provided. Patient reports to feeling improved and would like to go home. Please refer to cardiology consultation notes for further HPI. Discussed with the patient about lifestyle modification adjustments. Currently no reports of chest pain, shortness of breath, or palpitations. Patient is afebrile. No reports of nausea or vomiting and patient is tolerating diet. Patient will be discharged home today. High risk for readmissions given significant comorbidities and noncompliance to medication adherence and follow-up. Physical exam: Gen: This is a 69-year-old male who is awake, alert and oriented x 3, well- developed, well-nourished, obese, elderly appearing HEENT: Head is atraumatic, normocephalic. Pupils equal, round. Sclerae is anicteric. NECK: Supple. No JVD. No lymphadenopathy. No thyromegaly. LUNGS: Clear to auscultation. No wheezes or rhonchi. No intercostal retrac tions. HEART: Regular rate and rhythm. No murmur. ABDOMEN: Soft. Obese. Bowel sounds are present. No masses. No tenderness. EXTREMITIES: No pedal edema. No calf tenderness. NEUROLOGICAL: Patient is awake, alert and oriented x3. Cranial nerves 2 through 12 are grossly intact. Please refer to medication reconciliation sheet for a list of medications. The impression and plan of care has been dictated by Yokasta Marshall, Nurse Practitioner as directed. Dr. Cesar MD I have performed a history and examination and MDM of this patient, discussed the same with the dictator, and agree with the dictator's assessment and plan as written ,documented as a scribe. Based on total visit time, I have performed more than 50% of the visit. Patient Condition at Discharge: Stable Plan - Discharge Summary Discharge Rx Participant: Yes New Discharge Prescriptions: New Spironolactone [Aldactone] 25 mg PO DAILY #30 tab Aspirin 81 mg PO DAILY #30 tab Fluticasone Nasal [place] [Flonase Nasal [place]] 2 spray EA NOSTRIL DAILY PRN #5 ml PRN Reason: Allergy Symptoms Loratadine [Claritin] 5 mg PO DAILY #30 tab carvediloL [Coreg] 6.25 mg PO BID-W/MEALS #60 tab Losartan [Cozaar] 50 mg PO DAILY #30 tab Furosemide [Lasix] 20 mg PO DAILY #30 tab Atorvastatin [Lipitor] 80 mg PO HS #30 tab Nitroglycerin Sl Tabs [Nitrostat] 0.4 mg SUBLINGUAL Q5M PRN #20 tab PRN Reason: Chest Pain Acetaminophen Tab [Tylenol] 650 mg PO Q6HR PRN tab PRN Reason: Pain Discharge Medication List Acetaminophen Tab [Tylenol] 650 mg PO Q6HR PRN tab 09/30/24 [Rx] Aspirin 81 mg PO DAILY #30 tab 09/30/24 [Rx] Atorvastatin [Lipitor] 80 mg PO HS #30 tab 09/30/24 [Rx] Fluticasone Nasal [place] [Flonase Nasal [place]] 2 spray EA NOSTRIL DAILY PRN #5 ml 09/30/24 [Rx] Furosemide [Lasix] 20 mg PO DAILY #30 tab 09/30/24 [Rx] Loratadine [Claritin] 5 mg PO DAILY #30 tab 09/30/24 [Rx] Losartan [Cozaar] 50 mg PO DAILY #30 tab 09/30/24 [Rx] Nitroglycerin Sl Tabs [Nitrostat] 0.4 mg SUBLINGUAL Q5M PRN #20 tab 09/30/24 [Rx] Spironolactone [Aldactone] 25 mg PO DAILY #30 tab 09/30/24 [Rx] carvediloL [Coreg] 6.25 mg PO BID-W/MEALS #60 tab 09/30/24 [Rx] Follow up Appointment(s)/Referral(s): Babak Viveros MD [STAFF PHYSICIAN] - 1 Week (Office will call you with an appointment date/time once they get your records.) Meggan Davenport MD [STAFF PHYSICIAN] - 1 Week (Office director of casework services did not answer call; message left for office to call you back with appointment date/time.) Ambulatory/Diagnostic Orders: Basic Metabolic Panel [LAB.AMB] Time Frame: 2 Days, Location: None Selected Patient Instructions/Handouts: Heart Attack (DC), Heart Failure (DC), Heart Catheterization (DC) Activity/Diet/Wound Care/Special Instructions: Activity limited until follow-up Follow-up with primary care discharge Continue taking all medications as prescribed Follow heart healthy diet Follow-up with cardiology in 1 week Repeat labs to monitor kidney functions and electrolytes in 2 to 3 days Discharge/Stand Alone Forms: Who Do I Call?, Area PCPs Discharge Disposition: HOME SELF-CARE
== END 2024-09-30 14:32 | disposition home or self-care (01) | DRG 280 ==
LOC: EC 04:42 → 3SCARD 07:41
PROVIDERS: ADMIT Hospitalist; ATTEND Hospitalist
PROC: B2111ZZ Fluoroscopy of Multiple Coronary Arteries using Low Osmolar Contrast (ICD-10-PCS; 2024-09-28)
PROC: 4A023N7 Measurement of Cardiac Sampling and Pressure, Left Heart, Percutaneous Approach (ICD-10-PCS; principal; 2024-09-28 09:30)
DX: I21.4 Non-ST elevation (NSTEMI) myocardial infarction (principal); I50.23 Acute on chronic systolic (congestive) heart failure; I11.0 Hypertensive heart disease with heart failure; E66.9 Obesity, unspecified; I42.8 Other cardiomyopathies; N17.9 Acute kidney failure, unspecified; Z11.52 Encounter for screening for COVID-19; R73.9 Hyperglycemia, unspecified; Z68.35 Body mass index [BMI] 35.0-35.9, adult; R00.0 Tachycardia, unspecified; I49.3 Ventricular premature depolarization
CPT/HCPCS: 36415; 71045; 71046; 80048; 80053; 80061; 80306; 81001; 83036; 83735; 83880; 84443; 84484; 85025; 85379; 85610; 85652; 85730; 86140; 87636; 93005; 93306; 94640; 94760; 96374; 96375; 99291